=== PATIENT | female | born 1945 | race Caucasian/White ===

== ENCOUNTER 2017-01-14 09:15 | Emergency (ER) | payer OTHER ==
[2017-01-14 09:21] VITALS: BP 119/60; BMI 25.8
--- NOTE | 2017-01-14 09:35 | DR.GENAD ---
HPI - PCP Primary Care Physician: august - Complaint/Symptoms Chief Complaint Doctors Comments: Patient presents with a history of episodes of syncope and collapse for a few years. She had a MRI w/w/o contrast on which demonstranted stable left frontal and left posterior parietal subcortical white matter encephalopathy change from prevous infarct. on 06.19. had a sleep study: Impression: Be cautioned regarding drowsy driving. be placed on weight reductin diet, if indicated avoud narcotics and sedatives if possible. Jordy admits to recurrent periods of syncope with recovery in short period of time. When examinating patient she was alert in NAD. She admits to theses episodes for several years. She becomes alert after a short period. Chief Complaint:: family stated she has been feeling bad for awhile and this this morning and she had a low blood pressure at 60 systolic - Source History Provided: Patient - Mode of Arrival Mode of Arrival: Ambulatory - Timing Onset of Chief Complaint: 01/14/17 PMH - PMH Past Medical History: Yes Past Medical History: Diabetes, Hypertension Past Surgical History: Yes Surgical History: Abdominal Surgery, Ortho Surgery - Family History History of Family Medical Conditions: No - Social History Does patient currently use any type of tobacco product: No Have you used tobacco products in the last 12 months: No Type of Tobacco Use: None Does any household member use tobacco: No Alcohol Use: None Do you use any recreational Drugs:: No Lives With: Family Lives Where: Home - infectious screening In the last 2 months have you had wt loss of >10#?: NO Have you had fever, night sweats or hemotysis?: No Have you traveled outside the country in the last 6 months?: No Isolation: Standard ROS - Review of Systems Eyes: No Symptoms Reported ENTM: No Symptoms Reported Respiratoy: No Symptoms Reported Cardiovascular: No Symptoms Reported Gastrointestinal/Abdominal: No Symptoms Reported Genitourinary: No Symptoms Reported Neurological: No Symptoms Reported Musculoskeletal: No Symptoms Reported Integumentary: No Symptoms Reported Hematologic/Lymphatic: No Symptoms Reported Endocrine: No Symptoms Reported Psychiatric: No Symptoms Reported All Other Systems: Reviewed and Negative PE - Vital Signs Vitals: Temperature 97.3 F Pulse Rate 73 Respiratory Rate 16 Blood Pressure 119/60 O2 Sat by Pulse Oximetry 99 - General General Appearance: Alert, In No Apparent Distress - Head Head Exam: Normal Inspection, Atraumatic - Eyes Eye exam: Normal Appearance, EOMI - ENT ENT Exam: Normal Exam External Ear Exam: Normal External Inspection TM/Canal Exam: Bilateral Normal Nose Exam: Normal Nose Exam Mouth Exam: Normal Inspection Throat Exam: Normal Inspection - Neck Neck Exam: Normal Inspection, Full ROM - Chest Chest Inspection: Normal Inspection, Symmetric Chest Wall Rise - Respiratory Respiratory Exam: Bilateral Clear to Auscultation - Cardiovascular Cardiovascular Exam: Regular Rate, Normal Rhythm - Extremities Extremities Exam: Normal Inspection - Back Back Exam: Normal Inspection - Neurologic Neurological Exam: Alert, Oriented X3, CN II-XII Intact - Skin Skin Exam: Warm, Dry, Intact Course - Reevaluation 1st: Improved ROR - Labs Reviewed Result Diagrams: 01/14/17 09:56 01/14/17 09:56 Laboratory: WBC 6.4 X10^3/uL (3.6-10.0) 01/14/17 09:56 RBC 4.09 X10^6/uL (3.5-5.4) 01/14/17 09:56 Hgb 10.7 g/dL (12.0-16.0) L 01/14/17 09:56 Hct 32.1 % (36.0-47.0) L 01/14/17 09:56 MCV 78.5 fL (80.0-100.0) L 01/14/17 09:56 MCH 26.1 pg (27.0-34.0) L 01/14/17 09:56 MCHC 33.2 g/dL (33.0-35.0) 01/14/17 09:56 RDW 15.5 % (11.6-16.5) 01/14/17 09:56 Plt Count 261 X10^3/uL (150.0-450.0) 01/14/17 09:56 MPV 7.1 fL (7.4-11.0) L 01/14/17 09:56 Neut % 60.8 % (42.0-75.0) 01/14/17 09:56 Lymph % 27.9 % (21.0-51.0) 01/14/17 09:56 [place] % 7.4 % (0.0-13.0) 01/14/17 09:56 Eos % 3.3 % (0.9-2.9) H 01/14/17 09:56 Baso % 0.6 % (0.2-1.0) 01/14/17 09:56 Neut # 3.9 x10^3/uL (2.2-4.8) 01/14/17 09:56 Lymph # 1.8 X10^3/uL (1.3-2.9) 01/14/17 09:56 [place] # 0.5 x10^3/uL (0.3-0.8) 01/14/17 09:56 Eos # 0.2 x10^3/uL (0.0-0.2) 01/14/17 09:56 Baso # 0.0 X10^3/uL (0.0-0.1) 01/14/17 09:56 Absolute Nucleated RBC 0.0 /100WBC 01/14/17 09:56 INR Target Range - 01/14/17 09:56 INR 1.03 (0.8-1.3) 01/14/17 09:56 Sodium 138 mmol/L (136-145) 01/14/17 09:56 Corrected Sodium 139 mmol/L (136-145) 01/14/17 09:56 Potassium 4.0 mmol/L (3.5-5.1) 01/14/17 09:56 Chloride 102 mmol/L (98-107) 01/14/17 09:56 Carbon Dioxide 30.2 mmol/L (21-32) 01/14/17 09:56 BUN 14 mg/dL (7-18) 01/14/17 09:56 Creatinine 1.25 mg/dL (0.55-1.02) H 01/14/17 09:56 Est GFR (MDRD) Af Amer 54 (>60) L 01/14/17 09:56 Est GFR (MDRD) Non-Af 45 (>60) L 01/14/17 09:56 Glucose 136 mg/dL (65-99) H 01/14/17 09:56 Calcium 9.0 mg/dL (8.5-10.1) 01/14/17 09:56 Corrected Calcium TNP 01/14/17 09:56 Phosphorus 3.6 mg/dL (2.6-4.7) 01/14/17 09:56 Magnesium 1.5 mg/dL (1.7-2.9) L 01/14/17 09:56 Total Bilirubin 0.30 mg/dL (0.2-1.0) 01/14/17 09:56 AST 16 Units/L (15-37) 01/14/17 09:56 ALT 27 Units/L (12-78) 01/14/17 09:56 Alkaline Phosphatase 29 Units/L (46-116) L 01/14/17 09:56 Creatine Kinase 84 Units/L (26-192) 01/14/17 09:56 CK-MB (CK-2) < 1.0 ng/mL (0-4.0) 01/14/17 09:56 CK/CKMB % Calc 1.2 % (<4) 01/14/17 09:56 Troponin I < 0.02 ng/mL (0-1.5) 01/14/17 09:56 Total Protein 7.1 g/dL (6.4-8.2) 01/14/17 09:56 Albumin 3.8 g/dL (3.4-5.0) 01/14/17 09:56 Globulin 3.3 g/dL (2.5-4.5) 01/14/17 09:56 Albumin/Globulin Ratio 1.2 Ratio (1.1-2.1) 01/14/17 09:56 - Other Results Comments: Reviewed previous reports from [facility] dated 07/19/16: MRI of Brain with and without contrast., Sleep study from [facility]. - Diagnosis Discharge Problem: TIA (transient ischemic attack) Qualifiers: Transient cerebral ischemia type: unspecified Qualified Code(s): G45.9 - Transient cerebral ischemic attack, unspecified - Discharge Plan Condition: Stable - Follow ups/Referrals Follow ups/Referrals: Leon Silvestre [Primary Care Provider] - 3 days - Instructions
[2017-01-14 10:18] LABS: BASOPHILS % (AUTO) 0.6 % (0.2-1.0); EOSINOPHILS # (AUTO) 0.2 x10^3/uL (0.0-0.2); EOSINOPHILS % (AUTO) 3.3 % (0.9-2.9); HEMATOCRIT 32.1 % (36.0-47.0); HEMOGLOBIN 10.7 g/dL (12.0-16.0); LYMPHOCYTES # (AUTO) 1.8 X10^3/uL (1.3-2.9); LYMPHOCYTES % (AUTO) 27.9 % (21.0-51.0); MEAN CORPUSCULAR HEMOGLOBIN 26.1 pg (27.0-34.0); MEAN CORPUSCULAR HGB CONC 33.2 g/dL (33.0-35.0); MEAN CORPUSCULAR VOLUME 78.5 fL (80.0-100.0); MEAN PLATELET VOLUME 7.1 fL (7.4-11.0); MONOCYTES # (AUTO) 0.5 x10^3/uL (0.3-0.8); MONOCYTES % (AUTO) 7.4 % (0.0-13.0); NEUTROPHILS # (AUTO) 3.9 x10^3/uL (2.2-4.8); NEUTROPHILS % (AUTO) 60.8 % (42.0-75.0); PLATELET COUNT 261 X10^3/uL (150.0-450.0); RED BLOOD COUNT 4.09 X10^6/uL (3.5-5.4); RED CELL DISTRIBUTION WIDTH 15.5 % (11.6-16.5); WHITE BLOOD COUNT 6.4 X10^3/uL (3.6-10.0)
--- NOTE | 2017-01-14 10:22 | CT ---
HISTORY: Altered mental status Study: CT head without contrast Comparison: None Findings: The ventricles are normal in size shape and position. There is decreased attenuation in the perivent ricular white matter suggestive of small vessel vascular disease. There is an old left frontal infar ct present. There is no evidence for recent CVA, hemorrhage, mass lesion, or extra-axial fluid colle ction. Those sinuses visualized were clear. The calvarium is intact. 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
[2017-01-14 10:32] LABS: ALANINE AMINOTRANSFERASE 27 Units/L (12-78); ALBUMIN 3.8 g/dL (3.4-5.0); ALKALINE PHOSPHATASE 29 Units/L (46-116); ASPARTATE AMINO TRANSFERASE 16 Units/L (15-37); BLOOD UREA NITROGEN 14 mg/dL (7-18); CARBON DIOXIDE 30.2 mmol/L (21-32); CHLORIDE 102 mmol/L (98-107); COR NA(FOR HYPERGLY) 139 mmol/L (136-145); CREATININE 1.25 mg/dL (0.55-1.02); GLUCOSE 136 mg/dL (65-99); MAGNESIUM 1.5 mg/dL (1.7-2.9); PHOSPHORUS 3.6 mg/dL (2.6-4.7); SODIUM 138 mmol/L (136-145); TOTAL PROTEIN 7.1 g/dL (6.4-8.2); eGFR BLACK RACES 54 (>60); eGFR NON BLACK RACES 45 (>60)
[2017-01-14] MEDS ORDERED: TORADOL 30 MG VIAL IVP ONE (10:51)
[2017-01-14] MEDS ORDERED: ZOFRAN INJ 4 MG VIAL IVP ONE (10:51)
[2017-01-14] MEDS ORDERED: ZOFRAN INJ 4 MG VIAL IM ONE (11:05)
[2017-01-14] MEDS ORDERED: TORADOL 60 MG VIAL IM ONE (11:05)
[2017-01-14] MEDS ORDERED: TORADOL 60 MG VIAL ONE (11:08)
[2017-01-14] MEDS ORDERED: ZOFRAN INJ 4 MG VIAL ONE (11:08)
[2017-01-14 11:14] LABS: CKMB % 1.2 % (<4); CREATINE KINASE 84 Units/L (26-192); CREATINE KINASE MB < 1.0 ng/mL (0-4.0); TROPONIN I < 0.02 ng/mL (0-1.5)
== END 2017-01-14 12:33 | disposition home or self-care (01) ==
LOC: ER 09:15
DX: G45.8 Other transient cerebral ischemic attacks and related syndromes (principal); R55 Syncope and collapse
CPT/HCPCS: 36415; 70450; 80053; 82550; 82553; 83735; 84100; 84484; 85025; 85610; 93005; 93010; 96372; 99283; J1885; J2405

== ENCOUNTER 2018-08-01 09:52 | Observation (INO) ==
[2018-08-01 11:35] LABS: BASOPHILS # (AUTO) 0.2 X10^3/uL (0.0-0.1); BASOPHILS % (AUTO) 2.1 % (0.2-1.0); EOSINOPHILS # (AUTO) 0.1 x10^3/uL (0.0-0.2); EOSINOPHILS % (AUTO) 1.2 % (0.9-2.9); HEMATOCRIT 33.1 % (36.0-47.0); HEMOGLOBIN 10.9 g/dL (12.0-16.0); LYMPHOCYTES # (AUTO) 1.5 X10^3/uL (1.3-2.9); LYMPHOCYTES % (AUTO) 19.6 % (21.0-51.0); MEAN CORPUSCULAR HEMOGLOBIN 24.7 pg (27.0-34.0); MEAN PLATELET VOLUME 7.3 fL (7.4-11.0); MONOCYTES # (AUTO) 0.5 x10^3/uL (0.3-0.8); MONOCYTES % (AUTO) 6.7 % (0.0-13.0); NEUTROPHILS # (AUTO) 5.3 x10^3/uL (2.2-4.8); NEUTROPHILS % (AUTO) 70.4 % (42.0-75.0); PLATELET COUNT 411 X10^3/uL (150.0-450.0); RED BLOOD COUNT 4.42 X10^6/uL (3.5-5.4); RED CELL DISTRIBUTION WIDTH 16.4 % (11.6-16.5); WHITE BLOOD COUNT 7.6 X10^3/uL (3.6-10.0)
[2018-08-01 11:42] LABS: ALANINE AMINOTRANSFERASE 32 Units/L (12-78); ALBUMIN 3.8 g/dL (3.4-5.0); ALKALINE PHOSPHATASE 63 Units/L (46-116); AMYLASE 52 Units/L (25-115); ASPARTATE AMINO TRANSFERASE 19 Units/L (15-37); BLOOD UREA NITROGEN 15 mg/dL (7-18); CALCIUM 9.2 mg/dL (8.5-10.1); CARBON DIOXIDE 29.6 mmol/L (21-32); CHLORIDE 92 mmol/L (98-107); COR NA(FOR HYPERGLY) 131 mmol/L (136-145); CREATININE 0.94 mg/dL (0.55-1.02); LIPASE 135 Units/L (73-393); SODIUM 129 mmol/L (136-145); TOTAL PROTEIN 7.5 g/dL (6.4-8.2); eGFR NON BLACK RACES > 60 (>60)
[2018-08-01] MEDS: PROTONIX INJ 40 MG VIAL IVP SCH ×2 (11:47→20:11)
[2018-08-01] MEDS: NS 1000 ML 1,000 ML IV SCH ×2 (11:47→19:35)
[2018-08-01] MEDS: ZOFRAN INJ 4 MG VIAL IVP PRN ×2 (11:48→19:23)
[2018-08-01 11:50] LABS: BAND NEUTROPHILS % 3 % (0-10)
[2018-08-01 11:51] LABS: HYPOCHROMASIA SLIGHT; MICROCYTOSIS SLIGHT; PLATELET MORPHOLOGY COMMENT NORMAL (NORMAL)
[2018-08-01] MEDS ORDERED: STERILE WATER IRRIGATION IR ONE (12:09)
[2018-08-01 13:07] VITALS: BMI 25.7
[2018-08-01] MEDS ORDERED: FLUVIRIN IM ONE (13:07)
[2018-08-01] MEDS: PEPCID 20 MG IV PREMIX* 20 MG/50 ML BAG IV SCH ×2 (14:05→20:11)
[2018-08-01] MEDS ORDERED: TYLENOL 325 MG TAB PO PRN (18:04)
[2018-08-01] MEDS ORDERED: POTASSIUM CHL 40 MEQ/NS 0.45% 500 ML IV PRN (19:01)
[2018-08-01] MEDS ORDERED: POTASSIUM CHL 60 MEQ/NS 0.45% 500 ML IV PRN (19:01)
[2018-08-01] MEDS ORDERED: POTASSIUM CHLORIDE LIQ 20 MEQ UDC PO PRN (19:01)
[2018-08-01] MEDS ORDERED: K-RIDER 10 MEQ/NS 100 ML 10 MEQ/100 ML BAG IV PRN (19:01)
[2018-08-01] MEDS ORDERED: KLOR-CON PO PRN (19:01)
[2018-08-01] MEDS ORDERED: MICRO K EXTEN CAP 10 MEQ PO PRN (19:01)
[2018-08-01 20:28] LABS: BILIRUBIN,URINE NEGATIVE (NEGATIVE); BLOOD/HEMOGLOBIN,URINE 1+ (NEGATIVE); GLUCOSE, URINE 2+ (NEGATIVE); KETONES,URINE NEGATIVE (NEGATIVE); LEUKOCYTE ESTERASE ,URINE 3+ (NEGATIVE); NITRITES,URINE NEGATIVE (NEGATIVE); PROTEIN,URINE 1+ (NEGATIVE); UROBILINOGEN,URINE NORMAL (NORMAL)
[2018-08-01 20:29] LABS: APPEARANCE,URINE HAZY (CLEAR); COLOR,URINE YELLOW (YELLOW)
--- NOTE | 2018-08-01 20:33 | DR.UPDATE ---
H&P Update History and Physical Update: History and Physical reviewed and patient examined. Changes noted: Yes with the following: WAS SEEN IN THE OFFICE YESTERDAY FOR INTRACTABLE NAUSEA AND VOMITING. SHE DENIES IMPROVEMENT SINCE YESTERDAY. SHE WAS ADMITTED TO THE HOSPITAL FOR FURTHER EVALUATION AND TREATMENT OF DEHYDRATION WITH INTRACTABLE NAUSEA AND VOMITING. SHE HAS BEEN SEEN AND EXAMINED WITH NO OTHER CHANGES NOTED TO H&P.
[2018-08-01 20:37] LABS: RBC,URINE 0-2 /HPF (NONE SEEN)
[2018-08-01 20:38] LABS: BACTERIA,URINE 1+ /HPF (NEGATIVE); MUCUS,URINE FEW /HPF (NEGATIVE); SQUAMOUS EPITHELIAL CELL,UR FEW /HPF (NEGATIVE)
[2018-08-01] MEDS: ROCEPHIN VIAL 1 GRAM IVP SCH (21:18)
[2018-08-02] MEDS: NS 1000 ML 1,000 ML IV SCH ×3 (04:03→19:45)
[2018-08-02] MEDS: ZOFRAN INJ 4 MG VIAL IVP PRN ×2 (05:56→10:53)
[2018-08-02 06:39] LABS: BASOPHILS % (AUTO) 0.6 % (0.2-1.0); EOSINOPHILS # (AUTO) 0.3 x10^3/uL (0.0-0.2); EOSINOPHILS % (AUTO) 4.9 % (0.9-2.9); HEMATOCRIT 29.8 % (36.0-47.0); HEMOGLOBIN 9.8 g/dL (12.0-16.0); LYMPHOCYTES # (AUTO) 1.9 X10^3/uL (1.3-2.9); LYMPHOCYTES % (AUTO) 31.3 % (21.0-51.0); MEAN CORPUSCULAR HEMOGLOBIN 24.8 pg (27.0-34.0); MEAN CORPUSCULAR VOLUME 75.4 fL (80.0-100.0); MEAN PLATELET VOLUME 7.4 fL (7.4-11.0); MONOCYTES # (AUTO) 0.5 x10^3/uL (0.3-0.8); MONOCYTES % (AUTO) 7.7 % (0.0-13.0); NEUTROPHILS # (AUTO) 3.3 x10^3/uL (2.2-4.8); NEUTROPHILS % (AUTO) 55.5 % (42.0-75.0); PLATELET COUNT 362 X10^3/uL (150.0-450.0); RED BLOOD COUNT 3.96 X10^6/uL (3.5-5.4); RED CELL DISTRIBUTION WIDTH 16.7 % (11.6-16.5); WHITE BLOOD COUNT 5.9 X10^3/uL (3.6-10.0)
[2018-08-02 06:58] LABS: ALANINE AMINOTRANSFERASE 30 Units/L (12-78); ALBUMIN 3.5 g/dL (3.4-5.0); ALKALINE PHOSPHATASE 54 Units/L (46-116); ASPARTATE AMINO TRANSFERASE 24 Units/L (15-37); BLOOD UREA NITROGEN 12 mg/dL (7-18); CALCIUM 9.1 mg/dL (8.5-10.1); CARBON DIOXIDE 26.6 mmol/L (21-32); CHLORIDE 99 mmol/L (98-107); COR NA(FOR HYPERGLY) 139 mmol/L (136-145); CREATININE 1.01 mg/dL (0.55-1.02); MAGNESIUM 1.1 mg/dL (1.7-2.9); SODIUM 137 mmol/L (136-145); TOTAL PROTEIN 6.9 g/dL (6.4-8.2); eGFR NON BLACK RACES 57 (>60)
[2018-08-02 07:04] LABS: HYPOCHROMASIA SLIGHT; MICROCYTOSIS SLIGHT; PLATELET MORPHOLOGY COMMENT NORMAL (NORMAL)
[2018-08-02] MEDS: MAGNESIUM SULFATE 1 GRAM/100 mL PREMIX 1 GM/100 ML BAG IV PRN ×6 (08:27→17:21)
[2018-08-02] MEDS: PROTONIX INJ 40 MG VIAL IVP SCH (08:28)
[2018-08-02] MEDS: ROCEPHIN VIAL 1 GRAM IVP SCH (08:28)
[2018-08-02] MEDS: PEPCID 20 MG IV PREMIX* 20 MG/50 ML BAG IV SCH ×2 (08:29→20:41)
--- NOTE | 2018-08-02 12:21 | DR.H&P ---
Addendum entered and electronically signed by RENU DSEAI 08/02/18 12:24: PROGRESS NOTE 08/02/2018 Original Note: H&P - History & Physical for Day of: H&P Date: 08/01/18 - Chief Complaint Chief Complaint: N/V/D, ABDOMINAL PAIN, WEAKNESS - History of Present Illness History of Present Illness: 72 [address] ALATORRE OFFICE WITH CO NVD AND FOOD INTOLERANCE WITH INCREASED WEAKNESS AND DEHYDRATION. PT STATES SHE HAS HAD FOOD INTOLERANCE, WAVES OF NAUSEA AND INCREASED ABDOMINAL DISTENTION WITH GAS BLOATING AND BELCHING. DAUGHTER REPORTS INCREASED WEAKNESS AND FALLS. PT HAS PMH OF CAD, HTN, CVD, OA, DEMENTIA. PT ADMITTED FOR TREATMENT OF ACUTE ILLNESS. - Past Medical History Past Medical History: Anxiety, Arthritis, Coronary Artery Disease, Diabetes, Hypertension - Past Surgical History Surgical History: Hysterectomy, Ortho Surgery - Social History Does patient currently use any type of tobacco product: No Have you used tobacco products in the last 12 months: No Type of Tobacco Use: None Does any household member use tobacco: No Alcohol Use: None Drug Use: None - Medications Home Medications: Sulfa (Sulfonamide Antibiotics) [SULFA] Allergy (Verified 07/24/18 02:33) CONTINUE taking the following medications metformin [Glucophage] 850 mg PO BID 08/01/18 [History] omeprazole magnesium [Prilosec] 20 mg PO QDAY 08/01/18 [History] - Review of Systems Constitutional: Weakness Eyes: No Symptoms Reported ENT: No Symptoms Reported Respiratory: No Symptoms Reported Gastrointestinal: Nausea, Vomiting, Abdominal Pain, Diarrhea Genitourinary: No Symptoms Reported Musculoskeletal: No Symptoms Reported Skin: No Symptoms Reported Neurological: No Symptoms Reported - Physical Exam Vital Signs: Temperature 98.1 F Pulse Rate [Left Brachial] 94 Respiratory Rate 18 Blood Pressure [Left Arm] 173/75 Blood Pressure 138/93 O2 Sat by Pulse Oximetry 100 Oriented: Normal Eyes: Normal Ear: Normal Nose: Normal Throat: Dry Respiratory: RLL Diminished, LLL Diminished Cardiovascular: Normal : Normal Auscultation: Bowel Sounds: Normal Palpation: Normal Tenderness: Diffuse, RUQ, LUQ Skin: Normal Psychiatric: Normal Mood Description: Calm Speech Pattern: Clear, Appropriate - Assessment/Plan (1) Nausea, vomiting and diarrhea Status: Acute Plan: CT ABD PELVIS, REPEAT AM LABS. IV FLUIDS AT 50CCHR. PAIN AND NAUSEA CONTROL (2) Abdominal pain Status: Acute (3) CAD (coronary artery disease) Status: Acute (4) HTN (hypertension) Status: Acute (5) CVD (cerebrovascular disease) Status: Acute - Allergies Allergies/Adverse Reactions: Allergies Allergy/AdvReac Type Severity Reaction Status Date / Time Sulfa (Sulfonamide Allergy Verified 07/24/18 02:33 Antibiotics) [SULFA]
[2018-08-02] MEDS ORDERED: NS 500 ML IV 500 ML IV ONE (14:08)
[2018-08-02] MEDS ORDERED: NS 100 ML IV + SPIKE MINIBAG* 100 ML IV ONE (14:21)
--- NOTE | 2018-08-02 15:05 | CT ---
HISTORY: Nausea vomiting abdominal pain Study: CT abdomen and pelvis nausea with contrast Comparison: 01/04/2015 Technique: Multiple axial images of the abdomen and pelvis were obtained from the lung bases to the pubic symphysis after the administration of IV contrast. Findings: The included lung bases are clear. There is no evidence of a pleural or pericardial effusion. The heart size is normal. There is generalized hypoattenuation of the liver parenchyma consistent with fatty infiltration with focal sparing along the falciform ligament and at the level of the gallbladder fossa. There are no radiopaque gallstones identified. There is no gallbladder wall thickening observed. No acute abnormalities of the spleen are identified. There are no peripancreatic inflammatory changes. The adrenal glands are symmetric. Incidental note is made of dense atherosclerotic calcifications along the splenic artery distribution. Both kidneys enhance in a timely fashion with no evidence of hydronephrosis, striated nephrogram formation or perinephric stranding. There is mild cortical scarring of both kidneys. The bowel gas pattern is nonobstructive. Oral contrast material extends as far as the rectosigmoid colon at the time of the scan. Generalized left-sided colonic diverticulosis is observed with no active inflammatory stranding identified. The aorta maintains a normal caliber, exhibiting moderate atherosclerotic disease. There are no pathologically enlarged retro peritoneal, central mesenteric, or portal caval lymph nodes. There is no evidence of free air or free fluid. Note that the uterus is surgically absent. The bladder is incompletely distended at the time of the scan but otherwise unremarkable for acute pathology. There is no pelvic sidewall or inguinal lymphadenopathy. No free fluid is demonstrated. Review of bone windows demonstrates no aggressive lytic or blastic bony lesions or acute osseous abnormalities. Small foci of AVN are seen within the bilateral femoral heads without subchondral collapse. Multiple injection granuloma are seen along the bilateral flanks. IMPRESSION: No acute intra-abdominal or pelvic abnormality Nonobstructive bowel gas pattern Diverticulosis of the left colon with no findings of acute diverticulitis. Fatty infiltration of the liver parenchyma Other chronic postsurgical and degenerative findings as discussed above. Reported By:
[2018-08-02] MEDS: K-DUR TAB 20 MEQ PO PRN (17:32)
[2018-08-02] MEDS: NORVASC TAB 5 MG PO SCH (20:41)
[2018-08-02] MEDS: GLUCOPHAGE PO SCH (20:42)
[2018-08-02] MEDS ORDERED: RESTORIL CAP 15 MG PO PRN (20:50)
[2018-08-02] MEDS ORDERED: COZAAR PO SCH (21:00)
[2018-08-02] MEDS ORDERED: CRESTOR TAB 10 MG PO SCH (21:00)
[2018-08-03] MEDS: NS 1000 ML 1,000 ML IV SCH (03:55)
[2018-08-03] MEDS ORDERED: MAALOX or MYLANTA PO PRN (03:57)
[2018-08-03 06:38] LABS: BASOPHILS % (AUTO) 0.7 % (0.2-1.0); EOSINOPHILS # (AUTO) 0.2 x10^3/uL (0.0-0.2); EOSINOPHILS % (AUTO) 2.7 % (0.9-2.9); HEMATOCRIT 28.9 % (36.0-47.0); HEMOGLOBIN 9.5 g/dL (12.0-16.0); LYMPHOCYTES # (AUTO) 1.7 X10^3/uL (1.3-2.9); LYMPHOCYTES % (AUTO) 26.6 % (21.0-51.0); MEAN CORPUSCULAR HGB CONC 32.9 g/dL (33.0-35.0); MEAN PLATELET VOLUME 7.7 fL (7.4-11.0); MONOCYTES # (AUTO) 0.4 x10^3/uL (0.3-0.8); MONOCYTES % (AUTO) 7.1 % (0.0-13.0); NEUTROPHILS # (AUTO) 3.9 x10^3/uL (2.2-4.8); NEUTROPHILS % (AUTO) 62.9 % (42.0-75.0); PLATELET COUNT 339 X10^3/uL (150.0-450.0); RED CELL DISTRIBUTION WIDTH 16.6 % (11.6-16.5); WHITE BLOOD COUNT 6.3 X10^3/uL (3.6-10.0)
[2018-08-03 06:47] LABS: ALANINE AMINOTRANSFERASE 34 Units/L (12-78); ALBUMIN 3.5 g/dL (3.4-5.0); ALKALINE PHOSPHATASE 54 Units/L (46-116); ASPARTATE AMINO TRANSFERASE 24 Units/L (15-37); BLOOD UREA NITROGEN 4 mg/dL (7-18); CALCIUM 8.7 mg/dL (8.5-10.1); CARBON DIOXIDE 27.4 mmol/L (21-32); CHLORIDE 102 mmol/L (98-107); COR NA(FOR HYPERGLY) 139 mmol/L (136-145); CREATININE 0.75 mg/dL (0.55-1.02); SODIUM 138 mmol/L (136-145); TOTAL PROTEIN 6.9 g/dL (6.4-8.2); eGFR NON BLACK RACES > 60 (>60)
[2018-08-03 07:39] LABS: HYPOCHROMASIA SLIGHT; PLATELET MORPHOLOGY COMMENT NORMAL (NORMAL)
[2018-08-03] MEDS ORDERED: TOPROL XL PO ONE ×2 (08:22→08:42)
[2018-08-03] MEDS: ROCEPHIN VIAL 1 GRAM IVP SCH (08:35)
[2018-08-03] MEDS: PEPCID 20 MG IV PREMIX* 20 MG/50 ML BAG IV SCH (08:35)
[2018-08-03] MEDS: K-DUR TAB 20 MEQ PO PRN (08:35)
[2018-08-03] MEDS: GLUCOPHAGE PO SCH ×2 (08:36→10:16)
[2018-08-03] MEDS: NORVASC TAB 5 MG PO SCH (08:38)
[2018-08-03] MEDS ORDERED: PLAVIX PO SCH (09:00)
[2018-08-03] MEDS ORDERED: PriLOSEC PO SCH (09:00)
[2018-08-03] MEDS ORDERED: METOPROLOL SU HYDROCHLOROTHIAZ PO SCH (09:00)
[2018-08-03] MEDS ORDERED: TOPROL XL PO SCH (09:00)
[2018-08-03] MEDS ORDERED: HYDROCHLOROTHIAZIDE 12.5 MG CAP PO SCH (09:00)
[2018-08-03] MEDS ORDERED: CYMBALTA PO SCH (09:00)
[2018-08-03] MEDS ORDERED: ASPIRIN EC 81 MG PO SCH (09:00)
[2018-08-03] MEDS ORDERED: COENZYME Q10 75 MG PO SCH (09:00)
[2018-08-03] MEDS ORDERED: TRICOR TAB 48 MG PO SCH (09:00)
[2018-08-03] MEDS: MAGNESIUM SULFATE 1 GRAM/100 mL PREMIX 1 GM/100 ML BAG IV PRN (11:17)
[2018-08-03 12:43] VITALS: BP 150/73
== END 2018-08-03 14:20 | disposition home or self-care (01) ==
LOC: MED/SURG
PROVIDERS: ADMIT Internal Medicine; ATTEND Internal Medicine
DX: R29.6 Repeated falls; R11.2 Nausea with vomiting, unspecified; K76.0 Fatty (change of) liver, not elsewhere classified; K90.49 Malabsorption due to intolerance, not elsewhere classified; E11.65 Type 2 diabetes mellitus with hyperglycemia; I10 Essential (primary) hypertension; M13.0 Polyarthritis, unspecified; E78.2 Mixed hyperlipidemia; R53.1 Weakness; I25.810 Atherosclerosis of coronary artery bypass graft(s) without angina pectoris; R19.7 Diarrhea, unspecified; Z23 Encounter for immunization; Z79.899 Other long term (current) drug therapy; E86.0 Dehydration; K57.30 Diverticulosis of large intestine without perforation or abscess without bleeding
CPT/HCPCS: 36415; 74177; 80053; 81001; 82150; 83690; 83735; 84132; 85025; 87086; 90686; 94760; A4216; A4217; A4222; C9113; S0028; G0378; J0696; J2405; J3475; J3490; J7030; J7040; J7050

== ENCOUNTER 2024-02-29 15:44 | Inpatient (IN) ==
[2024-02-29 16:16] LABS: BASOPHILS # (AUTO) 0.1 X10^3/uL (0.0-0.1); BASOPHILS % (AUTO) 0.5 % (0.2-1.0); EOSINOPHILS % (AUTO) 0.2 % (0.9-2.9); HEMATOCRIT 38.8 % (36.0-47.0); HEMOGLOBIN 13.6 g/dL (12.0-16.0); LYMPHOCYTES # (AUTO) 1.7 X10^3/uL (1.3-2.9); LYMPHOCYTES % (AUTO) 14.7 % (21.0-51.0); MEAN CORPUSCULAR HEMOGLOBIN 29.8 pg (27.0-34.0); MEAN CORPUSCULAR HGB CONC 35.1 g/dL (33.0-35.0); MEAN PLATELET VOLUME 6.8 fL (7.4-11.0); MONOCYTES % (AUTO) 8.4 % (0.0-13.0); NEUTROPHILS # (AUTO) 8.7 x10^3/uL (2.2-4.8); NEUTROPHILS % (AUTO) 76.2 % (42.0-75.0); PLATELET COUNT 347 X10^3/uL (150.0-450.0); RED BLOOD COUNT 4.57 X10^6/uL (3.5-5.4); RED CELL DISTRIBUTION WIDTH 13.8 % (11.6-16.5); WHITE BLOOD COUNT 11.4 X10^3/uL (3.6-10.0)
--- NOTE | 2024-02-29 16:24 | DR.EXTPAIN ---
HPI Time seen Time Seen by Provider: 02/29/24 16:08 PCP Primary Care Physician: august HPI Comment HPI Comment: According to family patient has not been feelingwell for at least 1 week .Pt had low back pain as well as left hip pain .had been prescribed opioids.Furthermore she was treated with antibiotics and zofran after her urianlysis was noted to be abnormal . Pt has not been eating well with no appetite.Family concerned hence the visit Complaint/Symptoms Chief Complaint Doctor Comments: not feeling well Chief Complaint:: patient family states that she was seen here in the er saturday night due to severe siatic pain states she went home she has been in so much pain since then that she would vomit once or twice and it makes her nauseous to wear she has no appeitite to eat or drink. Patient has been able to ambulate with assistance in her home. seen dr koch on saturday states they started her antibitoics due to a UTI. Patient family states she been laying on the couch all day moaning. Patient denies any pain at the moment but is diaphoretic and had difficulty getting out of vehicle. COVID-19 Coronavirus risk:travel/contact w/high risk person: No Has patient experienced Coronavirus symptoms: No Nurses notes reviewed Nurses Notes Review: Yes Source History Provided: Patient and Family Member Mode of arrival Mode of Arrival: Wheelchair Timing Onset of Chief Complaint: 02/25/24 Context History of: Arthritis Associated signs and symptoms Associated Signs and Symptoms: Weakness and Nausea PMH PMH Past Medical History: Yes Past Medical History: Arthritis, Dyslipidemia, GERD, Hypertension and Kidney Stones Past Medical History Comment: predm, cad,ddd,tia,cvd Past Surgical History: Yes Surgical History: Appendectomy, CABG/Valve Surgery, Hysterectomy and Ortho Surgery Family History History of Family Medical Conditions: Yes Family Medical History: Diabetes Mellitus, Cancer, [place] and Hypertension Social History Does patient currently use any type of tobacco product: No Have you used tobacco products in the last 12 months: No Type of Tobacco Use: None Does any household member use tobacco: No Alcohol Use: None Do you use any recreational Drugs:: No Lives With: Family Lives Where: Home Travel Risk Coronavirus risk:travel/contact w/high risk person: No Has patient experienced Coronavirus symptoms: No Infectious screening In the last 2 months have you had wt loss of >10#?: NO Have you had fever, night sweats or hemotysis?: No Have you traveled outside the country in the last 6 months?: No Isolation: Standard ROS Review of Systems Constitutional: Malaise and Weakness Eyes: No Symptoms Reported ENTM: No Symptoms Reported Respiratoy: No Symptoms Reported Cardiovascular: No Symptoms Reported Gastrointestinal/Abdominal: Nausea and Other (decreased appetite ) Genitourinary: No Symptoms Reported Neurological: Weakness Musculoskeletal: Back Pain, Joint Pain and Hip Integumentary: No Symptoms Reported Hematologic/Lymphatic: No Symptoms Reported Endocrine: Decreased Appetite Psychiatric: No Symptoms Reported PE Vital Signs Vitals: Vital Signs Temperature 97.9 F Pulse Rate 87 Respiratory Rate 18 Blood Pressure 186/84 O2 Sat by Pulse Oximetry 96 General Limitations: No Limitations General Appearance: Alert and Lethargic Head Head Exam: Normal Inspection, Atraumatic and Normocephalic Eyes Eye exam: Normal Appearance and PERRL ENT ENT Exam: Mucous Membranes Dry Neck Neck Exam: Normal Inspection and Full ROM Chest Chest Inspection: Normal Inspection and Symmetric Chest Wall Rise Respiratory Respiratory Exam: Normal Lung Sounds Bilat Respiratory Exam: Bilateral: Clear to Auscultation Cardiovascular Cardiovascular Exam: +S1 and +S2 Abdominal Exam Abdominal Exam: Normal Inspection, Normal Bowel Sounds and Soft Extremities Extremities Exam: Normal Inspection, Full ROM and Other Skin Skin Exam: Normal Color Other Exam Other Exam: alert MDM Differential Diagnosis Differential Diagnosis: Other (not feeling weell.malaise,decreased appetite ,hx of chronic pain ) ROR Labs Reviewed Laboratory Results Reviewed?: Yes 02/29/24 15:50 02/29/24 15:50 Laboratory: WBC 11.4 X10^3/uL (3.6-10.0) H 02/29/24 15:50 RBC 4.57 X10^6/uL (3.5-5.4) 02/29/24 15:50 Hgb 13.6 g/dL (12.0-16.0) 02/29/24 15:50 Hct 38.8 % (36.0-47.0) 02/29/24 15:50 MCV 85.0 fL (80.0-100.0) 02/29/24 15:50 MCH 29.8 pg (27.0-34.0) 02/29/24 15:50 MCHC 35.1 g/dL (33.0-35.0) H 02/29/24 15:50 RDW 13.8 % (11.6-16.5) 02/29/24 15:50 Plt Count 347 X10^3/uL (150.0-450.0) 02/29/24 15:50 MPV 6.8 fL (7.4-11.0) L 02/29/24 15:50 Neut % (Auto) 76.2 % (42.0-75.0) H 02/29/24 15:50 Lymph % (Auto) 14.7 % (21.0-51.0) L 02/29/24 15:50 [place] % (Auto) 8.4 % (0.0-13.0) 02/29/24 15:50 Eos % (Auto) 0.2 % (0.9-2.9) L 02/29/24 15:50 Baso % (Auto) 0.5 % (0.2-1.0) 02/29/24 15:50 Neut # (Auto) 8.7 x10^3/uL (2.2-4.8) H 02/29/24 15:50 Lymph # (Auto) 1.7 X10^3/uL (1.3-2.9) 02/29/24 15:50 [place] # (Auto) 1.0 x10^3/uL (0.3-0.8) H 02/29/24 15:50 Eos # (Auto) 0.0 x10^3/uL (0.0-0.2) 02/29/24 15:50 Baso # (Auto) 0.1 X10^3/uL (0.0-0.1) 02/29/24 15:50 Absolute Nucleated RBC 0.1 /100WBC 02/29/24 15:50 Sodium 118 mmol/L (136-145) L* 02/29/24 15:50 Corrected Sodium 120 mmol/L (136-145) L 02/29/24 15:50 Potassium 4.1 mmol/L (3.5-5.1) 02/29/24 15:50 Chloride 79 mmol/L (98-107) L* 02/29/24 15:50 Carbon Dioxide 26.5 mmol/L (21-32) 02/29/24 15:50 BUN 15 mg/dL (7-18) 02/29/24 15:50 Creatinine 0.96 mg/dL (0.55-1.02) 02/29/24 15:50 Est GFR (MDRD) Af Amer > 60 (>60) 02/29/24 15:50 Est GFR (MDRD) Non-Af 59 (>60) 02/29/24 15:50 Glucose 167 mg/dL (65-99) H 02/29/24 15:50 Calcium 9.1 mg/dL (8.5-10.1) 02/29/24 15:50 Corrected Calcium TNP 02/29/24 15:50 Magnesium 1.0 mg/dL (2.0-2.9) L 02/29/24 15:50 Total Bilirubin 0.50 mg/dL (0.2-1.0) 02/29/24 15:50 AST 25 Units/L (15-37) 02/29/24 15:50 ALT 17 Units/L (12-78) 02/29/24 15:50 Alkaline Phosphatase 57 Units/L (46-116) 02/29/24 15:50 Total Protein 8.1 g/dL (6.4-8.2) 02/29/24 15:50 Albumin 4.1 g/dL (3.4-5.0) 02/29/24 15:50 Globulin 4.0 g/dL (2.5-4.5) 02/29/24 15:50 Albumin/Globulin Ratio 1.0 Ratio (1.1-2.1) L 02/29/24 15:50 Opioid Opioid Risk Tool Age (Brody box if 16-45): No History of Preadolescent Sexual Abuse: No Total: 0 Total Score Risk Category: Low Risk Copyright: Kurt predicting aberrant behaviors Discharge Plan Diagnosis Discharge Problem: Acute hyponatremia, Hypomagnesemia, Decrease in appetite, DM2 (diabetes mellitus, type 2), Malaise Discharge Plan Patient Disposition: ADMITTED INPATIENT Condition: Stable Orders to Discharge Patient Discharge Orders: Transfer (Routine); Ordered 02/29/24 Ordered By: Rob Johnson ADDITIONAL NOTES Additional Notes Additional Notes: Spoke with Codey Jarquin .Agreed to have patient admitted for amangement of hyponatremia and hypomagnesemia
[2024-02-29 16:26] LABS: ALANINE AMINOTRANSFERASE 17 Units/L (12-78); ALBUMIN 4.1 g/dL (3.4-5.0); ALKALINE PHOSPHATASE 57 Units/L (46-116); ASPARTATE AMINO TRANSFERASE 25 Units/L (15-37); BLOOD UREA NITROGEN 15 mg/dL (7-18); CALCIUM 9.1 mg/dL (8.5-10.1); CARBON DIOXIDE 26.5 mmol/L (21-32); COR NA(FOR HYPERGLY) 120 mmol/L (136-145); CREATININE 0.96 mg/dL (0.55-1.02); GLUCOSE 167 mg/dL (65-99); POTASSIUM 4.1 mmol/L (3.5-5.1); TOTAL PROTEIN 8.1 g/dL (6.4-8.2); eGFR NON BLACK RACES 59 (>60)
[2024-02-29 16:30] LABS: CHLORIDE 79 mmol/L (98-107); SODIUM 118 mmol/L (136-145)
[2024-02-29] MEDS: NS 1,000 ML IV 1,000 ML IV ONE (16:32)
[2024-02-29] MEDS: MAGNESIUM SULFATE 1 GRAM/100 mL PREMIX 1 G/100 ML BAG IV ONE ×3 (16:36→20:10)
[2024-02-29] MEDS ORDERED: ZOFRAN INJ 4 MG VIAL IVP PRN (17:32)
[2024-02-29] MEDS: NS 1,000 ML IV 1,000 ML ONE (17:35)
[2024-02-29] MEDS: CONSULT PHARMACY - POTASSIUM & MAGNESIUM XX SCH (17:36)
[2024-02-29 18:23] VITALS: BMI 19.0
[2024-02-29] MEDS: CATAPRES-TTS-1 TD SCH (19:31)
[2024-02-29] MEDS: NORCO 10/325 TAB PO PRN (19:31)
[2024-02-29] MEDS: CATAPRES-TTS-1 TD ONE (19:52)
[2024-02-29] MEDS: NORCO 10/325 TAB ONE (19:52)
[2024-02-29] MEDS: APRESOLINE INJ 20 MG VIAL IVP ONE (19:58)
[2024-02-29] MEDS ORDERED: GLUCOPHAGE ONE (20:03)
[2024-02-29] MEDS: NS 1,000 ML IV 1,000 ML IV SCH (20:10)
[2024-02-29] MEDS: GLUCOPHAGE PO SCH (20:11)
[2024-02-29] MEDS: NORVASC TAB 10 MG PO SCH (20:11)
[2024-02-29] MEDS: DESYREL PO SCH (20:11)
[2024-02-29] MEDS: MAG-OX TAB PO SCH (20:11)
[2024-02-29] MEDS: CRESTOR TAB 10 MG PO SCH (20:12)
[2024-02-29] MEDS: SINGULAIR TAB 10 MG PO SCH (20:12)
--- NOTE | 2024-02-29 20:42 | EKG ---
Test Reason : HYPERTENSION PROTOCOL Blood Pressure : */* mmHG Vent. Rate : 82 BPM Atrial Rate : 82 BPM P-R Int : 118 ms QRS Dur : 98 ms QT Int : 432 ms P-R-T Axes : 41 4 61 degrees QTc Int : 504 ms Normal sinus rhythm Minimal voltage criteria for LVH, may be normal variant ( R in aVL ) Inferior infarct , age undetermined Abnormal ECG When compared with ECG of 14-JUL-2022 22:12, No significant change was found Confirmed by Phuc Silva MD ([id number]) on 03/02/2024 7:48:27 AM Referred By: Confirmed By: Phuc Silva MD
[2024-02-29] MEDS ORDERED: MAGNESIUM SULFATE 1 GRAM/100 mL PREMIX 1 G/100 ML BAG IV SCH (21:00)
[2024-02-29] MEDS ORDERED: PATIENT'S HOME MEDICATION (Metformin 1,000 mg tablet) PO SCH (21:00)
[2024-02-29] MEDS ORDERED: PATIENT'S HOME MEDICATION (Rosuvastatin 20 mg tablet) PO SCH (21:00)
[2024-02-29] MEDS ORDERED: AMLODIPINE BESYLATE 5 MG PO SCH (21:00)
[2024-02-29 22:30] LABS: BLOOD UREA NITROGEN 15 mg/dL (7-18); CALCIUM 8.2 mg/dL (8.5-10.1); CARBON DIOXIDE 27.6 mmol/L (21-32); CHLORIDE 85 mmol/L (98-107); COR NA(FOR HYPERGLY) 123 mmol/L (136-145); CREATININE 0.87 mg/dL (0.55-1.02); GLUCOSE 171 mg/dL (65-99); POTASSIUM 3.1 mmol/L (3.5-5.1); eGFR NON BLACK RACES > 60 (>60)
[2024-02-29 22:34] LABS: SODIUM 121 mmol/L (136-145)
[2024-02-29] MEDS: RESTORIL CAP 15 MG PO PRN (23:45)
[2024-03-01] MEDS: NS 1,000 ML IV 1,000 ML IV SCH (02:00)
[2024-03-01 03:05] LABS: BLOOD UREA NITROGEN 15 mg/dL (7-18); CALCIUM 8.1 mg/dL (8.5-10.1); CARBON DIOXIDE 27.8 mmol/L (21-32); CHLORIDE 89 mmol/L (98-107); COR NA(FOR HYPERGLY) 125 mmol/L (136-145); CREATININE 0.87 mg/dL (0.55-1.02); GLUCOSE 123 mg/dL (65-99); POTASSIUM 3.1 mmol/L (3.5-5.1); eGFR NON BLACK RACES > 60 (>60)
[2024-03-01 03:06] LABS: SODIUM 124 mmol/L (136-145)
[2024-03-01 06:09] LABS: BASOPHILS % (AUTO) 0.4 % (0.2-1.0); EOSINOPHILS # (AUTO) 0.1 x10^3/uL (0.0-0.2); EOSINOPHILS % (AUTO) 0.9 % (0.9-2.9); HEMATOCRIT 30.1 % (36.0-47.0); LYMPHOCYTES # (AUTO) 1.3 X10^3/uL (1.3-2.9); LYMPHOCYTES % (AUTO) 19.8 % (21.0-51.0); MEAN CORPUSCULAR HEMOGLOBIN 30.1 pg (27.0-34.0); MEAN CORPUSCULAR HGB CONC 35.3 g/dL (33.0-35.0); MEAN CORPUSCULAR VOLUME 85.5 fL (80.0-100.0); MEAN PLATELET VOLUME 6.7 fL (7.4-11.0); MONOCYTES # (AUTO) 0.7 x10^3/uL (0.3-0.8); MONOCYTES % (AUTO) 10.9 % (0.0-13.0); NEUTROPHILS # (AUTO) 4.6 x10^3/uL (2.2-4.8); PLATELET COUNT 247 X10^3/uL (150.0-450.0); RED BLOOD COUNT 3.52 X10^6/uL (3.5-5.4); RED CELL DISTRIBUTION WIDTH 13.6 % (11.6-16.5); WHITE BLOOD COUNT 6.7 X10^3/uL (3.6-10.0)
[2024-03-01 06:25] LABS: BLOOD UREA NITROGEN 14 mg/dL (7-18); CALCIUM 8.1 mg/dL (8.5-10.1); CARBON DIOXIDE 28.2 mmol/L (21-32); CHLORIDE 92 mmol/L (98-107); COR NA(FOR HYPERGLY) 128 mmol/L (136-145); CREATININE 0.84 mg/dL (0.55-1.02); GLUCOSE 128 mg/dL (65-99); MAGNESIUM 1.7 mg/dL (2.0-2.9); POTASSIUM 3.3 mmol/L (3.5-5.1); SODIUM 127 mmol/L (136-145); eGFR NON BLACK RACES > 60 (>60)
[2024-03-01 06:49] LABS: HEMOGLOBIN 10.6 g/dL (12.0-16.0)
[2024-03-01] MEDS ORDERED: CONSULT PHARMACY - POTASSIUM & MAGNESIUM XX SCH (07:00)
[2024-03-01] MEDS: MAG-OX TAB PO SCH (08:12)
[2024-03-01] MEDS: PLAVIX PO SCH (08:12)
[2024-03-01] MEDS: CYMBALTA PO SCH (08:12)
[2024-03-01] MEDS: K-DUR TAB 20 MEQ PO SCH (08:13)
[2024-03-01] MEDS: ASPIRIN 81 MG CHEWTAB PO SCH (08:13)
[2024-03-01] MEDS: TOPROL XL PO SCH (08:13)
[2024-03-01] MEDS: GLUCOPHAGE ONE (08:13)
[2024-03-01] MEDS: COZAAR PO SCH (08:13)
[2024-03-01] MEDS: TOPROL XL PO ONE (08:24)
[2024-03-01] MEDS ORDERED: PATIENT'S HOME MEDICATION (Losartan 100 mg tablet) PO SCH (09:00)
[2024-03-01] MEDS ORDERED: ASPIRIN 81 MG PO SCH (09:00)
[2024-03-01] MEDS ORDERED: TOPROL XL PO SCH (09:00)
[2024-03-01] MEDS ORDERED: PLAVIX PO SCH (09:00)
[2024-03-01 10:18] LABS: BLOOD UREA NITROGEN 13 mg/dL (7-18); CARBON DIOXIDE 25.4 mmol/L (21-32); CHLORIDE 94 mmol/L (98-107); COR NA(FOR HYPERGLY) 131 mmol/L (136-145); CREATININE 0.81 mg/dL (0.55-1.02); GLUCOSE 162 mg/dL (65-99); POTASSIUM 3.3 mmol/L (3.5-5.1); SODIUM 130 mmol/L (136-145); eGFR NON BLACK RACES > 60 (>60)
[2024-03-01] MEDS: MORPHINE SULFATE INJ 2 MG INJ IVP ONE (13:53)
[2024-03-01] MEDS ORDERED: BUTT CREAM (COMPOUND) TOP PRN (14:12)
[2024-03-01 14:43] LABS: BLOOD UREA NITROGEN 13 mg/dL (7-18); CALCIUM 8.3 mg/dL (8.5-10.1); CARBON DIOXIDE 26.8 mmol/L (21-32); CHLORIDE 96 mmol/L (98-107); COR NA(FOR HYPERGLY) 134 mmol/L (136-145); GLUCOSE 181 mg/dL (65-99); SODIUM 132 mmol/L (136-145); eGFR NON BLACK RACES > 60 (>60)
[2024-03-01] MEDS ORDERED: MAALOX or MYLANTA PO PRN (18:09)
[2024-03-01] MEDS ORDERED: GLUCOPHAGE ONE (21:39)
[2024-03-01] MEDS: NORMODYNE INJ 20 MG VIAL IV PRN (23:34)
[2024-03-02 05:41] LABS: BASOPHILS % (AUTO) 0.3 % (0.2-1.0); EOSINOPHILS # (AUTO) 0.1 x10^3/uL (0.0-0.2); EOSINOPHILS % (AUTO) 1.2 % (0.9-2.9); HEMOGLOBIN 11.5 g/dL (12.0-16.0); LYMPHOCYTES # (AUTO) 1.4 X10^3/uL (1.3-2.9); LYMPHOCYTES % (AUTO) 12.1 % (21.0-51.0); MEAN CORPUSCULAR HEMOGLOBIN 30.1 pg (27.0-34.0); MEAN CORPUSCULAR HGB CONC 34.9 g/dL (33.0-35.0); MEAN CORPUSCULAR VOLUME 86.2 fL (80.0-100.0); MEAN PLATELET VOLUME 7.2 fL (7.4-11.0); MONOCYTES % (AUTO) 8.4 % (0.0-13.0); PLATELET COUNT 265 X10^3/uL (150.0-450.0); RED BLOOD COUNT 3.83 X10^6/uL (3.5-5.4); RED CELL DISTRIBUTION WIDTH 14.4 % (11.6-16.5); WHITE BLOOD COUNT 11.6 X10^3/uL (3.6-10.0)
[2024-03-02 06:00] LABS: ALANINE AMINOTRANSFERASE 19 Units/L (12-78); ALBUMIN 3.7 g/dL (3.4-5.0); ALKALINE PHOSPHATASE 52 Units/L (46-116); ASPARTATE AMINO TRANSFERASE 19 Units/L (15-37); BLOOD UREA NITROGEN 8 mg/dL (7-18); CALCIUM 8.6 mg/dL (8.5-10.1); CARBON DIOXIDE 25.5 mmol/L (21-32); CHLORIDE 98 mmol/L (98-107); COR NA(FOR HYPERGLY) 137 mmol/L (136-145); CREATININE 0.61 mg/dL (0.55-1.02); GLUCOSE 123 mg/dL (65-99); POTASSIUM 3.4 mmol/L (3.5-5.1); SODIUM 136 mmol/L (136-145); TOTAL PROTEIN 7.1 g/dL (6.4-8.2); eGFR NON BLACK RACES > 60 (>60)
[2024-03-02 08:23] LABS: BILIRUBIN,URINE NEGATIVE (NEGATIVE); BLOOD/HEMOGLOBIN,URINE NEGATIVE (NEGATIVE); GLUCOSE, URINE NEGATIVE (NEGATIVE); KETONES,URINE NEGATIVE (NEGATIVE); LEUKOCYTE ESTERASE ,URINE NEGATIVE (NEGATIVE); NITRITES,URINE NEGATIVE (NEGATIVE); PROTEIN,URINE 1+ (NEGATIVE); UROBILINOGEN,URINE NORMAL (NORMAL)
--- NOTE | 2024-03-02 08:23 | RAD ---
EXAMINATION:KNEE COMPLETE, RIGHTHISTORY:fall; .COMPARISON STUDY:NoneTECHNIQUE:3 views of the right knee were obtained.FINDINGS:There is normal osteopenia. There is no fracture, dislocation, or radiopaque foreign body. Soft tissues are unremarkable. No joint effusion is noted. No osteolytic or osteoblastic lesions are present. Mild osteoarthritic changes in the medial and patellofemoral compartments. Vascular calcification.IMPRESSION:No Acute Bony Process .THIS IS AN ELECTRONICALLY VERIFIED FINAL REPORT03/02/2024 8:20 AM - Electronically signed by Vance Cali MD
[2024-03-02 08:24] LABS: APPEARANCE,URINE CLEAR (CLEAR); COLOR,URINE STRAW (YELLOW)
--- NOTE | 2024-03-02 08:24 | RAD ---
EXAMINATION: KNEE COMPLETE, LEFT HISTORY: fall; . COMPARISON STUDY: None. TECHNIQUE: 3 views of the left knee were obtained. FINDINGS: Osteopenia and mild osteoarthritic changes. There is no fracture, dislocation, or radiopaque foreign body. Soft tissues are unremarkable. No joint effusion is noted. No osteolytic or osteoblastic le sions are present. Vascular calcification is present. Radiopaque density along the proximal tibia m edially may represent a surgical clip. Correlate clinically. IMPRESSION: NO ACUTE BONY PROCESS. THIS IS AN ELECTRONICALLY VERIFIED FINAL REPORT 03/02/2024 8:21 AM - Electronically signed by Vance Cali MD
[2024-03-02 08:30] LABS: BACTERIA,URINE NEGATIVE /HPF (NEGATIVE); RBC,URINE 0-2 /HPF (0-3); SQUAMOUS EPITHELIAL CELL,UR RARE /HPF (NEGATIVE)
[2024-03-02] MEDS ORDERED: TOPROL XL PO ONE (08:41)
[2024-03-02] MEDS ORDERED: GLUCOPHAGE ONE ×2 (08:41→19:56)
[2024-03-02] MEDS: NS 1,000 ML IV 1,000 ML IV SCH (10:30)
--- NOTE | 2024-03-02 11:22 | DR.H&P ---
H&P - History & Physical for Day of: H&P Date: 02/29/24 - Chief Complaint Chief Complaint: WEAKNESS, SEVERE LOW BACK PAIN, LEFT HIP PAIN, AND BILATERAL KNEE PAIN - History of Present Illness History of Present Illness: IS A 78 YEAR OLD PATIENT OF OURS. SHE PRESENTED TO THE ER WITH COMPLAINTS OF WEAKNESS, SEVERE LOW BACK PAIN, LEFT HIP PAIN, AND BILATERAL KNEE PAIN. SHE ALSO COMPLAINED OF NAUSEA AND DECREASED APPETITE. SHE WAS SEEN IN THE OFFICE ON SATURDAY OF THIS PAST WEEK AND WAS TREATED FOR A UTI. SHE WAS PRESCRIBED MACROBID 1 CAPSULE BID. HER PMH INCLUDES: ARTHRITIS, DYSLIPIDEMIA, GERD, HTN, KIDNEY STONES, CAD, TIA. SURGICAL HX INCLUDES: CABG, HYSTERECTOMY, AND APPENDECTOMY. ON ARRIVAL TO THE ER, HER VITALS WERE: 97.9-87-18-96%-186/84. LABS WERE OBTAINED. WBC 11.4, RBC 4.57, HGB 13.6, HCT 38.8, SODIUM 118, POTASSIUM 4.1, CHLORIDE 79, C02 26.5, BUN 15, CREATININE 0.96, GLUCOSE 167, CALCIUM 9.1, TOTAL BILI 0.50, AST 25, ALT 17, ALK PHOS 57, TOTAL PROTEIN 8.1, ALBUMIN 4.1, MAGNESIUM 1.0. EKG WAS OBTAINED AND REVEALED NORMAL SINUS RHYTHM WITH HR 82 BPM. SHE HAD A PELVIS CT ON 02/24/24 WHICH REVEALED: THERE IS NO ACUTE FRACTURE SEEN. NO FOCAL BONY EROSION OR SCLEROSIS IS SEEN. NO JOINT SUBLUXATION OR DISLOCATION IS SEEN. THERE IS NO EVIDENCE FOR AVASCULAR NECROSIS OF THE HIPS. THERE IS MILD OSTEOARTHRITIS OF BOTH HIPS MARKED BY JOINT SPACE NARROWINGS AND MINIMAL MARGINAL OSTEOPHYTOSIS. NO RADIODENSE SOFT TISSUE ABNORMALITY OR FOREIGN BODY IS NOTED. SEVERE AORTOILIAC AND FEMORAL ATHEROSCLEROSIS SEEN. STATUS POST HYSTERECTOMY. THERE IS SEVERE DESCENDING COLON AND SIGMOID DIVERTICULOSIS, WITHOUT EVIDENCE FOR DIVERTICULITIS. NO EVIDENCE FOR BOWEL HERNIATION, BOWEL OBSTRUCTION, OR COLITIS. THERE ARE MULTIPLE BILATERAL CALCIFIED BUTTOCK INJECTION GRANULOMAS.IN THE ER, SHE WAS GIVEN A NORMAL SALINE BOLUS AND MAGNESIUM 1G IV X 1 DOSE. SHE WAS ADMITTED TO THE HOSPITAL FOR FURTHER EVALUATION AND TREATMENT OF HYPOKALEMIA, HYPOMAGNESEMIA, AND GENERALIZED WEAKNESS. ON ADMISSION, SHE WAS STARTED ON NORMAL SALINE AT 200 ML/HR, OTBS ACHS, ZOFRAN 4MG IV Q8H PRN, RESTORIL 15MG PO HS PRN, CLONIDINE 0.1MG/HR TD PATCH, AND LABETALOL 10MG IV Q15MG PRN. HER HOME MEDICATIONS OF TRAZODONE 100MG HS, ROSUVASTATIN 20MG HS, SINGULAIR 10MG HS, METFORMIN 1000MG BID, NORCO 10/325MG QID PRN, TOPROL XL 100MG DAILY, COZAAR 100MG DAILY, CYMBALTA 60MG DAILY, PLAVIX 75MG DAILY, ECOTRIN 81MG DAILY, AND NORVASC 5MG BID WERE RESU MED. WE WILL OBTAIN BILATERAL KNEE XRAYS DUE TO KNEE PAIN. OTHERWISE, WE WILL FOLLOW-UP WITH AM LABS AND CONTINUE TO MONITOR. TIME SPENT ON CLINICAL ASSESSMENT, REVIEWING LABS AND IMAGING, DECISION MAKING, AND DOCUMENTATION GREATER THAN 75 MINUTES. - Past Medical History Past Medical History: Hypertension, Dyslipidemia, GERD, Arthritis, Kidney Stones - Past Surgical History Surgical History: Appendectomy, CABG/Valve Surgery, Hysterectomy, Ortho Surgery - Family History Family Medical History: Diabetes Mellitus, Cancer, MD, Hypertension - Social History Does patient currently use any type of tobacco product: No Have you used tobacco products in the last 12 months: No Type of Tobacco Use: None Does any household member use tobacco: No Alcohol Use: None Drug Use: None - Review of Systems Constitutional: Weakness Eyes: No Symptoms Reported ENT: No Symptoms Reported Respiratory: No Symptoms Reported Cardiovascular: No Symptoms Reported Gastrointestinal: Nausea Genitourinary: No Symptoms Reported Musculoskeletal: Back Pain, Other (LEFT HIP PAIN, BILATERAL KNEE PAIN) Skin: No Symptoms Reported Neurological: Weakness - Physical Exam Vital Signs: Vital Signs Temperature 98.6 F Temperature 97.8 F Pulse Rate 97 Pulse Rate 104 Pulse Rate 96 Pulse Rate 92 Pulse Rate 90 Pulse Rate 86 Pulse Rate 87 Pulse Rate 84 Pulse Rate 89 Respiratory Rate 21 Respiratory Rate 16 Respiratory Rate 26 Respiratory Rate 26 Respiratory Rate 20 Respiratory Rate 35 Respiratory Rate 13 Respiratory Rate 19 Respiratory Rate 13 Respiratory Rate 13 Respiratory Rate 15 Blood Pressure 179/73 Blood Pressure 167/70 Blood Pressure 192/82 Blood Pressure 163/71 Blood Pressure 161/70 O2 Sat by Pulse Oximetry 100 O2 Sat by Pulse Oximetry 95 O2 Sat by Pulse Oximetry 100 O2 Sat by Pulse Oximetry 100 O2 Sat by Pulse Oximetry 100 O2 Sat by Pulse Oximetry 100 O2 Sat by Pulse Oximetry 100 O2 Sat by Pulse Oximetry 100 O2 Sat by Pulse Oximetry 98 Oriented: Not Oriented Eyes: Normal Ear: Normal Nose: Normal Throat: Normal Respiratory: Clear Throughout Cardiovascular: Normal : Normal Auscultation: Bowel Sounds: Normal Palpation: Normal Tenderness: Normal Skin: Decreased Turgur Musculoskeletal: Left, Hip, Back:Lumbar, Tender Psychiatric: Normal Mood Description: Calm Affect: Normal Speech Pattern: Clear - Assessment/Plan (1) Acute hyponatremia Status: Acute Plan: ADMIT, NORMAL SALINE AT 200 ML/HR, OTBS ACHS, ZOFRAN 4MG IV Q8H PRN, RESTORIL 15MG PO HS PRN, CLONIDINE 0.1MG/HR TD PATCH, AND LABETALOL 10MG IV Q15MG PRN, RESUME HOME MEDS, FOLLOW-UP WITH AM LABS (2) Hypomagnesemia Status: Acute (3) Generalized weakness Status: Acute (4) Decrease in appetite Status: Acute (5) Knee pain Qualifiers: Laterality: bilateral Status: Acute Plan: OBTAIN BILATERAL KNEE XRAYS (6) Dyslipidemia Status: Chronic (7) GERD (gastroesophageal reflux disease) Qualifiers: Esophagitis presence: esophagitis presence not specified Qualified Code(s): K21.9 - Gastro-esophageal reflux disease without esophagitis Status: Chronic (8) CAD (coronary artery disease) Qualifiers: Coronary Disease-Associated Artery/Lesion type: bypass graft [place] vs. transplanted heart: [place] heart Associated angina: without angina Qualified Code(s): I25.810 - Atherosclerosis of coronary artery bypass graft(s) without angina pectoris Status: Chronic (9) CVD (cerebrovascular disease) Status: Chronic (10) HTN (hypertension) Qualifiers: Hypertension type: primary hypertension Qualified Code(s): I10 - Essential (primary) hypertension Status: Chronic - Allergies Allergies/Adverse Reactions: Allergies Allergy/AdvReac Type Severity Reaction Status Date / Time Sulfa (Sulfonamide Allergy Verified 02/24/24 19:43 Antibiotics) [SULFA] - Medications Home Medications: Home Medications Medication Instructions Recorded Confirmed Amlodipine Besylate 5 mg PO BID 01/14/17 02/29/24 Aspirin 81 mg PO DAILY 01/14/17 02/29/24 duloxetine 60 mg capsule,delayed 60 mg PO DAILY 01/14/17 02/29/24 release (Cymbalta) clopidogrel 75 mg tablet 75 mg PO QDAY 02/24/24 02/29/24 hydrocodone 10 mg-acetaminophen 1 tab PO QID PRN 02/24/24 02/29/24 325 mg tablet losartan 100 mg tablet 100 mg PO QDAY 02/24/24 02/29/24 metformin 1,000 mg tablet 1,000 mg PO BID 02/24/24 02/29/24 metoprolol succinate 100 mg 100 mg PO QDAY 02/24/24 02/29/24 tablet,extended release 24 hr montelukast 10 mg tablet 10 mg PO QDAY 02/24/24 02/29/24 rosuvastatin 20 mg tablet 20 mg PO QPM 02/24/24 02/29/24 coenzyme Q10 100 mg capsule (Co 100 mg PO QDAY 02/29/24 02/29/24 Q-10) fluconazole 150 mg tablet 150 mg PO Q3D 02/29/24 02/29/24 ibuprofen 800 mg tablet 800 mg PO TID 02/29/24 02/29/24 nitrofurantoin 1 cap PO BID 02/29/24 02/29/24 monohydrate/macrocrystals 100 mg capsule ondansetron 4 mg disintegrating 4 mg PO QID PRN Nausea And Vomiting 02/29/24 02/29/24 tablet trazodone 100 mg tablet 100 mg PO QPM 02/29/24 02/29/24
[2024-03-02] MEDS: CATAPRES-TTS-3 TD SCH (12:50)
[2024-03-02] MEDS: NS 1,000 ML IV 1,000 ML with MAGNESIUM SULFATE 50% INJ VIAL 1 G IV SCH (16:30)
[2024-03-02] MEDS ORDERED: VISTARIL PO ONE (23:14)
[2024-03-02] MEDS: VISTARIL PO PRN (23:18)
[2024-03-03] MEDS ORDERED: VALIUM ONE (03:02)
[2024-03-03] MEDS: VALIUM PO PRN (03:05)
[2024-03-03 05:06] LABS: BASOPHILS # (AUTO) 0.1 X10^3/uL (0.0-0.1); BASOPHILS % (AUTO) 0.7 % (0.2-1.0); EOSINOPHILS # (AUTO) 0.1 x10^3/uL (0.0-0.2); EOSINOPHILS % (AUTO) 1.6 % (0.9-2.9); HEMOGLOBIN 10.5 g/dL (12.0-16.0); LYMPHOCYTES # (AUTO) 1.3 X10^3/uL (1.3-2.9); LYMPHOCYTES % (AUTO) 16.5 % (21.0-51.0); MEAN CORPUSCULAR HEMOGLOBIN 30.2 pg (27.0-34.0); MEAN CORPUSCULAR HGB CONC 35.1 g/dL (33.0-35.0); MEAN CORPUSCULAR VOLUME 86.3 fL (80.0-100.0); MEAN PLATELET VOLUME 6.7 fL (7.4-11.0); MONOCYTES # (AUTO) 0.6 x10^3/uL (0.3-0.8); MONOCYTES % (AUTO) 7.6 % (0.0-13.0); NEUTROPHILS % (AUTO) 73.6 % (42.0-75.0); PLATELET COUNT 250 X10^3/uL (150.0-450.0); RED BLOOD COUNT 3.48 X10^6/uL (3.5-5.4); RED CELL DISTRIBUTION WIDTH 13.9 % (11.6-16.5); WHITE BLOOD COUNT 8.2 X10^3/uL (3.6-10.0)
[2024-03-03 05:15] LABS: ALANINE AMINOTRANSFERASE 19 Units/L (12-78); ALBUMIN 3.4 g/dL (3.4-5.0); ALKALINE PHOSPHATASE 47 Units/L (46-116); ASPARTATE AMINO TRANSFERASE 12 Units/L (15-37); BLOOD UREA NITROGEN 7 mg/dL (7-18); CALCIUM 8.8 mg/dL (8.5-10.1); CARBON DIOXIDE 29.1 mmol/L (21-32); CHLORIDE 98 mmol/L (98-107); COR NA(FOR HYPERGLY) 137 mmol/L (136-145); CREATININE 0.62 mg/dL (0.55-1.02); GLUCOSE 149 mg/dL (65-99); MAGNESIUM 1.3 mg/dL (2.0-2.9); SODIUM 136 mmol/L (136-145); TOTAL PROTEIN 6.7 g/dL (6.4-8.2); eGFR NON BLACK RACES > 60 (>60)
[2024-03-03] MEDS ORDERED: CONSULT PHARMACY - POTASSIUM & MAGNESIUM XX SCH ×2 (07:00→09:00)
[2024-03-03] MEDS ORDERED: MAG-OX TAB PO SCH (09:00)
[2024-03-03] MEDS ORDERED: K-DUR TAB 20 MEQ PO SCH (09:00)
--- NOTE | 2024-03-03 09:33 | PCM.PROG ---
Progress Note Progress Note for Day of Date of Exam: 03/03/24 Subjective Subjective: Patient seen at bedside, overnight patient was very agitated and confused. She was given several medications including Vistaril, trazodone and Zyprexa. Family states it seemed like the medications was making her worse. She did get Valium early this morning which seemed to have helped calm her down and put her to sleep. Patient is drowsy during rounds. She did work with PT yesterday and was eating better. Dr Silvestre had mentioned yesterday that if patient continues to have confusion or agitation then will order CT-brain to r/o any other cause. Labs/imaging reviewed: -Hgb 10.5 K:3.0 Ma.3 Plan: Will order CT-brain to assess further. Will DC Vistaril, Zyprexa and trazodone. Add seroquel qHS. Continue Valium prn. Replace electrolytes as per protocol. Continue fluids. PT as tolerated. Continue home medications. Fall precautions. Monitor for agitation. Monitor AM labs/imaging. Past Medical Family Social History Allergies: Allergies Sulfa (Sulfonamide Antibiotics) [SULFA] Allergy (Verified 02/24/24 19:43) Vital Signs and I&O's Vital Signs: Vital Signs Temperature 98.3 F Pulse Rate 73 Respiratory Rate 15 Blood Pressure 143/67 O2 Sat by Pulse Oximetry 96 Intake and Output: Intake & Output 02/29/24 03/01/24 03/02/24 03/03/24 23:59 23:59 23:59 23:59 Intake Total 1413 / 1413 4781 / 4781 3850 / 3850 100 / 100 Output Total 900 / 900 2350 / 2350 3075 / 3075 Balance 513 / 513 2431 / 2431 775 / 775 100 / 100 Physical Exam Oriented: Not Oriented Eyes: Normal Ear: Normal Nose: Normal Throat: Normal Respiratory: Normal Cardiovascular: Normal Auscultation: Bowel Sounds: Normal Palpation: Normal Tenderness: Normal Skin: Decreased Turgur Musculoskeletal: Left, Hip, Back:Lumbar and Tender Psychiatric: Normal Mood Description: Calm Affect: Normal Laboratory and Diagnostics 03/03/24 04:30 03/03/24 04:30 Labs: Laboratory WBC 8.2 X10^3/uL (3.6-10.0) 03/03/24 04:30 RBC 3.48 X10^6/uL (3.5-5.4) L 03/03/24 04:30 Hgb 10.5 g/dL (12.0-16.0) L 03/03/24 04:30 Hct 30.0 % (36.0-47.0) L 03/03/24 04:30 MCV 86.3 fL (80.0-100.0) 03/03/24 04:30 MCH 30.2 pg (27.0-34.0) 03/03/24 04:30 MCHC 35.1 g/dL (33.0-35.0) H 03/03/24 04:30 RDW 13.9 % (11.6-16.5) 03/03/24 04:30 Plt Count 250 X10^3/uL (150.0-450.0) 03/03/24 04:30 MPV 6.7 fL (7.4-11.0) L 03/03/24 04:30 Neut % (Auto) 73.6 % (42.0-75.0) 03/03/24 04:30 Lymph % (Auto) 16.5 % (21.0-51.0) L 03/03/24 04:30 [place] % (Auto) 7.6 % (0.0-13.0) 03/03/24 04:30 Eos % (Auto) 1.6 % (0.9-2.9) 03/03/24 04:30 Baso % (Auto) 0.7 % (0.2-1.0) 03/03/24 04:30 Neut # (Auto) 6.0 x10^3/uL (2.2-4.8) H 03/03/24 04:30 Lymph # (Auto) 1.3 X10^3/uL (1.3-2.9) 03/03/24 04:30 [place] # (Auto) 0.6 x10^3/uL (0.3-0.8) 03/03/24 04:30 Eos # (Auto) 0.1 x10^3/uL (0.0-0.2) 03/03/24 04:30 Baso # (Auto) 0.1 X10^3/uL (0.0-0.1) 03/03/24 04:30 Absolute Nucleated RBC 0.1 /100WBC 03/03/24 04:30 Sodium 136 mmol/L (136-145) 03/03/24 04:30 Corrected Sodium 137 mmol/L (136-145) 03/03/24 04:30 Potassium 3.0 mmol/L (3.5-5.1) L 03/03/24 04:30 Chloride 98 mmol/L (98-107) 03/03/24 04:30 Carbon Dioxide 29.1 mmol/L (21-32) 03/03/24 04:30 BUN 7 mg/dL (7-18) 03/03/24 04:30 Creatinine 0.62 mg/dL (0.55-1.02) 03/03/24 04:30 Est GFR (MDRD) Af Amer > 60 (>60) 03/03/24 04:30 Est GFR (MDRD) Non-Af > 60 (>60) 03/03/24 04:30 Glucose 149 mg/dL (65-99) H 03/03/24 04:30 POC Glucose (mg/dL) 142 mg/dL (65-99) H 03/03/24 05:58 Calcium 8.8 mg/dL (8.5-10.1) 03/03/24 04:30 Corrected Calcium TNP 03/03/24 04:30 Magnesium 1.3 mg/dL (2.0-2.9) L 03/03/24 04:30 Total Bilirubin 0.30 mg/dL (0.2-1.0) 03/03/24 04:30 AST 12 Units/L (15-37) L 03/03/24 04:30 ALT 19 Units/L (12-78) 03/03/24 04:30 Alkaline Phosphatase 47 Units/L (46-116) 03/03/24 04:30 Total Protein 6.7 g/dL (6.4-8.2) 03/03/24 04:30 Albumin 3.4 g/dL (3.4-5.0) 03/03/24 04:30 Globulin 3.3 g/dL (2.5-4.5) 03/03/24 04:30 Albumin/Globulin Ratio 1.0 Ratio (1.1-2.1) L 03/03/24 04:30 Specimen Type Clean catch urine 03/02/24 08:10 Urine Color Straw (YELLOW) 03/02/24 08:10 Urine Appearance Clear (CLEAR) 03/02/24 08:10 Urine pH 7.0 (5.0 - 8.0) 03/02/24 08:10 Ur Specific [place] 1.010 (1.000-1.030) 03/02/24 08:10 Urine Protein 1+ (NEGATIVE) 03/02/24 08:10 Urine Glucose (UA) Negative (NEGATIVE) 03/02/24 08:10 Urine Ketones Negative (NEGATIVE) 03/02/24 08:10 Urine Blood Negative (NEGATIVE) 03/02/24 08:10 Urine Nitrite Negative (NEGATIVE) 03/02/24 08:10 Urine Bilirubin Negative (NEGATIVE) 03/02/24 08:10 Urine Urobilinogen Normal (NORMAL) 03/02/24 08:10 Ur Leukocyte Esterase Negative (NEGATIVE) 03/02/24 08:10 Urine RBC 0-2 /HPF (0-3) 03/02/24 08:10 Urine WBC 0-2 /HPF (0-5) 03/02/24 08:10 Ur Squamous Epith Cells Rare /HPF (NEGATIVE) 03/02/24 08:10 Urine Bacteria Negative /HPF (NEGATIVE) 03/02/24 08:10 Ur Culture Indicated? No/not indicated 03/02/24 08:10 Plan (1) AMS (altered mental status): Status: Acute Qualifiers: Altered mental status type: unspecified Qualified Code(s): R41.82 - Altered mental status, unspecified (2) Acute hyponatremia: Status: Acute (3) Hypokalemia: Status: Acute (4) Hypomagnesemia: Status: Acute (5) Generalized weakness: Status: Acute (6) Decrease in appetite: Status: Acute (7) Dyslipidemia: Status: Chronic (8) GERD (gastroesophageal reflux disease): Status: Chronic Qualifiers: Esophagitis presence: esophagitis presence not specified Qualified Code(s): K21.9 - Gastro-esophageal reflux disease without esophagitis (9) CAD (coronary artery disease): Status: Chronic Qualifiers: Associated angina: without angina Coronary Disease-Associated Artery/Lesion type: bypass graft [place] vs. transplanted heart: [place] heart Qualified Code(s): I25.810 - Atherosclerosis of coronary artery bypass graft(s) without angina pectoris (10) CVD (cerebrovascular disease): Status: Chronic (11) HTN (hypertension): Status: Chronic Qualifiers: Hypertension type: primary hypertension Qualified Code(s): I10 - Essential (primary) hypertension
[2024-03-03] MEDS: NS + KCL 40 MEQ/L 1,000 ML with MAGNESIUM SULFATE 50% INJ VIAL 2 G IV SCH (10:21)
[2024-03-03] MEDS: GLUCOPHAGE ONE (10:41)
[2024-03-03] MEDS: TOPROL XL PO ONE (10:42)
--- NOTE | 2024-03-03 11:10 | CT ---
EXAM: BRAIN W/O CON HISTORY: CONFUSION, AGITATION ; HX- HTN, KIDNEY STONES SX- APPENDECTOMY, VALVE, HYST, ORTHO COMPARISON: No relevant prior studies were available for comparison at the time of interpretation.. TECHNIQUE: CT images were obtained. Multiplanar reconstructions were created on a separate workstation and used during interpretation. All CT scans at this facility is dose modulation, iterative reconstruction, an d/or weight-based dosing as appropriate to reduce radiation to levels as low as reasonably achievable (ALARA). Postprocessing details, radiation dose, and contrast dose (if applicable) are recorded in t he patient's medical record. FINDINGS: Head: Acute findings: There is no intracranial hemorrhage. No mass effect. No intra-axial or extra-axial fl uid collection. There is no mass. No tentorial, uncal, or tonsillar herniation. Brain volume and white matter: There is diffuse cortical atrophy. There is hypoattenuation in the sup ratentorial white matter consistent with chronic microvascular ischemic disease. Ventricles: No hydrocephalus Midline structures: Pituitary gland and corpus callosum are normal. Posterior fossa and skull base: Cerebellum and posterior fossa are within normal limits. Basal cister ns are not effaced. Sinuses and mastoids: Paranasal sinuses and mastoid air cells are predominantly clear. Globes and Orbits: Bilateral lens implants. Globes are intact. Bony orbits are intact. Extraocular mu scles and retrobulbar fat appear normal. Skull and soft tissues: No depressed skull fracture. Calvarium appears intact. No scalp injury is markel ntified. IMPRESSION: 1. No acute intracranial abnormality THIS IS AN ELECTRONICALLY VERIFIED FINAL REPORT 03/03/2024 11:07 AM - Electronically signed by Manpreet Lowry MD
[2024-03-03] MEDS ORDERED: GLUCOPHAGE ONE (19:53)
[2024-03-03] MEDS: SEROquel TAB 25 mg PO SCH (20:32)
[2024-03-04 05:41] LABS: BASOPHILS % (AUTO) 0.5 % (0.2-1.0); EOSINOPHILS # (AUTO) 0.2 x10^3/uL (0.0-0.2); EOSINOPHILS % (AUTO) 2.9 % (0.9-2.9); HEMATOCRIT 28.1 % (36.0-47.0); HEMOGLOBIN 9.6 g/dL (12.0-16.0); LYMPHOCYTES # (AUTO) 2.2 X10^3/uL (1.3-2.9); LYMPHOCYTES % (AUTO) 29.2 % (21.0-51.0); MEAN CORPUSCULAR HEMOGLOBIN 30.2 pg (27.0-34.0); MEAN CORPUSCULAR HGB CONC 34.4 g/dL (33.0-35.0); MEAN CORPUSCULAR VOLUME 87.9 fL (80.0-100.0); MEAN PLATELET VOLUME 6.7 fL (7.4-11.0); MONOCYTES # (AUTO) 0.5 x10^3/uL (0.3-0.8); MONOCYTES % (AUTO) 7.1 % (0.0-13.0); NEUTROPHILS # (AUTO) 4.5 x10^3/uL (2.2-4.8); NEUTROPHILS % (AUTO) 60.3 % (42.0-75.0); PLATELET COUNT 244 X10^3/uL (150.0-450.0); RED BLOOD COUNT 3.19 X10^6/uL (3.5-5.4); RED CELL DISTRIBUTION WIDTH 13.9 % (11.6-16.5); WHITE BLOOD COUNT 7.5 X10^3/uL (3.6-10.0)
[2024-03-04 05:54] LABS: ALANINE AMINOTRANSFERASE 29 Units/L (12-78); ALKALINE PHOSPHATASE 42 Units/L (46-116); ASPARTATE AMINO TRANSFERASE 19 Units/L (15-37); BLOOD UREA NITROGEN 14 mg/dL (7-18); CALCIUM 8.6 mg/dL (8.5-10.1); CARBON DIOXIDE 26.9 mmol/L (21-32); CHLORIDE 103 mmol/L (98-107); COR CA(FOR HYPOALB) 9.4 mg/dL (8.5-10.1); COR NA(FOR HYPERGLY) 138 mmol/L (136-145); CREATININE 0.79 mg/dL (0.55-1.02); GLUCOSE 142 mg/dL (65-99); POTASSIUM 3.9 mmol/L (3.5-5.1); SODIUM 137 mmol/L (136-145); eGFR NON BLACK RACES > 60 (>60)
[2024-03-04] MEDS ORDERED: TOPROL XL PO ONE (08:12)
[2024-03-04] MEDS: GLUCOPHAGE ONE (09:15)
--- NOTE | 2024-03-04 10:26 | PCM.PROG ---
Progress Note Progress Note for Day of Date of Exam: 03/04/24 Subjective Subjective: Patient seen at bedside, no acute events overnight. She is doing much better today. She is sitting up in the chair. She slept better and had no confusion or agitation. She is eating better. She did work some with PT yesterday. She still has some weakness and unsteady when ambulating. Her jeremias ctrolytes have improved. Labs/imaging reviewed: -Hgb 9.6 K:3.9 Ma.0 -CT-brain: no acute changes Plan: Will change fluids to NS, replace electrolytes as needed. PT/OT as tolerated. Continue seroquel qhS, valium prn.Continue home medications. Fall precautions. Monitor for agitation. Monitor AM labs/imaging. Past Medical Family Social History Allergies: Allergies Sulfa (Sulfonamide Antibiotics) [SULFA] Allergy (Verified 02/24/24 19:43) Vital Signs and I&O's Vital Signs: Vital Signs Pulse Rate 84 Respiratory Rate 21 Blood Pressure 104/54 O2 Sat by Pulse Oximetry 94 Intake and Output: Intake & Output 03/01/24 03/02/24 03/03/24 03/04/24 23:59 23:59 23:59 23:59 Intake Total 4781 / 4781 3850 / 3850 1834 / 1834 714 / 714 Output Total 2350 / 2350 3075 / 3075 Balance 2431 / 2431 775 / 775 1834 / 1834 714 / 714 Physical Exam Oriented: Person and Place Eyes: Normal Ear: Normal Nose: Normal Throat: Normal Respiratory: Normal Cardiovascular: Normal Auscultation: Bowel Sounds: Normal Palpation: Normal Tenderness: Normal Skin: Decreased Turgur Musculoskeletal: Left, Hip, Back:Lumbar and Tender Psychiatric: Normal Mood Description: Calm Affect: Normal Speech Pattern: Clear and Appropriate Laboratory and Diagnostics 03/04/24 04:55 03/04/24 04:55 Labs: Laboratory WBC 7.5 X10^3/uL (3.6-10.0) 03/04/24 04:55 RBC 3.19 X10^6/uL (3.5-5.4) L 03/04/24 04:55 Hgb 9.6 g/dL (12.0-16.0) L 03/04/24 04:55 Hct 28.1 % (36.0-47.0) L 03/04/24 04:55 MCV 87.9 fL (80.0-100.0) 03/04/24 04:55 MCH 30.2 pg (27.0-34.0) 03/04/24 04:55 MCHC 34.4 g/dL (33.0-35.0) 03/04/24 04:55 RDW 13.9 % (11.6-16.5) 03/04/24 04:55 Plt Count 244 X10^3/uL (150.0-450.0) 03/04/24 04:55 MPV 6.7 fL (7.4-11.0) L 03/04/24 04:55 Neut % (Auto) 60.3 % (42.0-75.0) 03/04/24 04:55 Lymph % (Auto) 29.2 % (21.0-51.0) 03/04/24 04:55 [place] % (Auto) 7.1 % (0.0-13.0) 03/04/24 04:55 Eos % (Auto) 2.9 % (0.9-2.9) 03/04/24 04:55 Baso % (Auto) 0.5 % (0.2-1.0) 03/04/24 04:55 Neut # (Auto) 4.5 x10^3/uL (2.2-4.8) 03/04/24 04:55 Lymph # (Auto) 2.2 X10^3/uL (1.3-2.9) 03/04/24 04:55 [place] # (Auto) 0.5 x10^3/uL (0.3-0.8) 03/04/24 04:55 Eos # (Auto) 0.2 x10^3/uL (0.0-0.2) 03/04/24 04:55 Baso # (Auto) 0.0 X10^3/uL (0.0-0.1) 03/04/24 04:55 Absolute Nucleated RBC 0.0 /100WBC 03/04/24 04:55 Sodium 137 mmol/L (136-145) 03/04/24 04:55 Corrected Sodium 138 mmol/L (136-145) 03/04/24 04:55 Potassium 3.9 mmol/L (3.5-5.1) 03/04/24 04:55 Chloride 103 mmol/L (98-107) 03/04/24 04:55 Carbon Dioxide 26.9 mmol/L (21-32) 03/04/24 04:55 BUN 14 mg/dL (7-18) 03/04/24 04:55 Creatinine 0.79 mg/dL (0.55-1.02) 03/04/24 04:55 Est GFR (MDRD) Af Amer > 60 (>60) 03/04/24 04:55 Est GFR (MDRD) Non-Af > 60 (>60) 03/04/24 04:55 Glucose 142 mg/dL (65-99) H 03/04/24 04:55 POC Glucose (mg/dL) 143 mg/dL (65-99) H 03/04/24 05:26 Calcium 8.6 mg/dL (8.5-10.1) 03/04/24 04:55 Corrected Calcium 9.4 mg/dL (8.5-10.1) 03/04/24 04:55 Magnesium 2.0 mg/dL (2.0-2.9) 03/04/24 04:55 Total Bilirubin 0.20 mg/dL (0.2-1.0) 03/04/24 04:55 AST 19 Units/L (15-37) 03/04/24 04:55 ALT 29 Units/L (12-78) 03/04/24 04:55 Alkaline Phosphatase 42 Units/L (46-116) L 03/04/24 04:55 Total Protein 6.0 g/dL (6.4-8.2) L 03/04/24 04:55 Albumin 3.0 g/dL (3.4-5.0) L 03/04/24 04:55 Globulin 3.0 g/dL (2.5-4.5) 03/04/24 04:55 Albumin/Globulin Ratio 1.0 Ratio (1.1-2.1) L 03/04/24 04:55 Specimen Type Clean catch urine 03/02/24 08:10 Urine Color Straw (YELLOW) 03/02/24 08:10 Urine Appearance Clear (CLEAR) 03/02/24 08:10 Urine pH 7.0 (5.0 - 8.0) 03/02/24 08:10 Ur Specific [place] 1.010 (1.000-1.030) 03/02/24 08:10 Urine Protein 1+ (NEGATIVE) 03/02/24 08:10 Urine Glucose (UA) Negative (NEGATIVE) 03/02/24 08:10 Urine Ketones Negative (NEGATIVE) 03/02/24 08:10 Urine Blood Negative (NEGATIVE) 03/02/24 08:10 Urine Nitrite Negative (NEGATIVE) 03/02/24 08:10 Urine Bilirubin Negative (NEGATIVE) 03/02/24 08:10 Urine Urobilinogen Normal (NORMAL) 03/02/24 08:10 Ur Leukocyte Esterase Negative (NEGATIVE) 03/02/24 08:10 Urine RBC 0-2 /HPF (0-3) 03/02/24 08:10 Urine WBC 0-2 /HPF (0-5) 03/02/24 08:10 Ur Squamous Epith Cells Rare /HPF (NEGATIVE) 03/02/24 08:10 Urine Bacteria Negative /HPF (NEGATIVE) 03/02/24 08:10 Ur Culture Indicated? No/not indicated 03/02/24 08:10 Plan (1) AMS (altered mental status): Status: Acute Qualifiers: Altered mental status type: unspecified Qualified Code(s): R41.82 - Altered mental status, unspecified (2) Acute hyponatremia: Status: Acute (3) Hypokalemia: Status: Acute (4) Hypomagnesemia: Status: Acute (5) Generalized weakness: Status: Acute (6) Decrease in appetite: Status: Acute (7) Dyslipidemia: Status: Chronic (8) GERD (gastroesophageal reflux disease): Status: Chronic Qualifiers: Esophagitis presence: esophagitis presence not specified Qualified Code(s): K21.9 - Gastro-esophageal reflux disease without esophagitis (9) CAD (coronary artery disease): Status: Chronic Qualifiers: Coronary Disease-Associated Artery/Lesion type: bypass graft [place] vs. transplanted heart: [place] heart Associated angina: without angina Qualified Code(s): I25.810 - Atherosclerosis of coronary artery bypass graft(s) without angina pectoris (10) CVD (cerebrovascular disease): Status: Chronic (11) HTN (hypertension): Status: Chronic Qualifiers: Hypertension type: primary hypertension Qualified Code(s): I10 - Essential (primary) hypertension
[2024-03-04] MEDS: NS 1,000 ML IV 1,000 ML IV SCH (11:54)
[2024-03-04] MEDS ORDERED: RESTORIL CAP 15 MG PO PRN (15:31)
[2024-03-04] MEDS ORDERED: GLUCOPHAGE ONE (20:19)
[2024-03-05 05:29] LABS: BASOPHILS % (AUTO) 0.6 % (0.2-1.0); EOSINOPHILS # (AUTO) 0.3 x10^3/uL (0.0-0.2); EOSINOPHILS % (AUTO) 3.7 % (0.9-2.9); HEMOGLOBIN 9.1 g/dL (12.0-16.0); LYMPHOCYTES # (AUTO) 1.8 X10^3/uL (1.3-2.9); LYMPHOCYTES % (AUTO) 25.9 % (21.0-51.0); MEAN CORPUSCULAR HGB CONC 33.6 g/dL (33.0-35.0); MEAN CORPUSCULAR VOLUME 89.3 fL (80.0-100.0); MEAN PLATELET VOLUME 6.7 fL (7.4-11.0); MONOCYTES # (AUTO) 0.4 x10^3/uL (0.3-0.8); MONOCYTES % (AUTO) 6.2 % (0.0-13.0); NEUTROPHILS # (AUTO) 4.4 x10^3/uL (2.2-4.8); NEUTROPHILS % (AUTO) 63.6 % (42.0-75.0); PLATELET COUNT 213 X10^3/uL (150.0-450.0); RED BLOOD COUNT 3.03 X10^6/uL (3.5-5.4); RED CELL DISTRIBUTION WIDTH 13.7 % (11.6-16.5); WHITE BLOOD COUNT 6.9 X10^3/uL (3.6-10.0)
[2024-03-05 05:40] LABS: ALANINE AMINOTRANSFERASE 31 Units/L (12-78); ALBUMIN 2.9 g/dL (3.4-5.0); ALKALINE PHOSPHATASE 40 Units/L (46-116); ASPARTATE AMINO TRANSFERASE 14 Units/L (15-37); BLOOD UREA NITROGEN 15 mg/dL (7-18); CALCIUM 8.5 mg/dL (8.5-10.1); CARBON DIOXIDE 28.2 mmol/L (21-32); CHLORIDE 103 mmol/L (98-107); COR CA(FOR HYPOALB) 9.4 mg/dL (8.5-10.1); COR NA(FOR HYPERGLY) 140 mmol/L (136-145); CREATININE 0.75 mg/dL (0.55-1.02); GLUCOSE 131 mg/dL (65-99); MAGNESIUM 1.4 mg/dL (2.0-2.9); POTASSIUM 4.2 mmol/L (3.5-5.1); SODIUM 139 mmol/L (136-145); TOTAL PROTEIN 5.8 g/dL (6.4-8.2); eGFR NON BLACK RACES > 60 (>60)
[2024-03-05 05:56] VITALS: TEMP 98.9
[2024-03-05] MEDS ORDERED: CONSULT PHARMACY - POTASSIUM & MAGNESIUM XX SCH (08:00)
[2024-03-05 08:04] VITALS: BP 151/67; PULSE 84; O2SAT 98
[2024-03-05] MEDS: NS 1,000 ML IV 1,000 ML with MAGNESIUM SULFATE 50% INJ VIAL 1 G IV SCH (08:48)
[2024-03-05] MEDS: GLUCOPHAGE ONE (08:57)
[2024-03-05] MEDS: TOPROL XL PO ONE (08:58)
[2024-03-05 09:07] VITALS: RESP 18
[2024-03-05] MEDS: CHLORASEPTIC SPRAY MT PRN (09:25)
--- NOTE | 2024-03-09 09:21 | W.DIS.FURT ---
Summary of Discharge Discharge Summary of Date Date of Exam: 03/05/24 Admission Date Date of Admission: 02/29/24 Admission Diagnosis Patient Problems (Updated 03/06/24 @ 12:07 by Trino Chan) CAD (coronary artery disease) (Chronic) I25.10 HTN (hypertension) (Chronic) I10 CVD (cerebrovascular disease) (Chronic) I67.9 Acute hyponatremia (Acute) E87.1 Hypomagnesemia (Acute) E83.42 Decrease in appetite (Acute) R63.0 DM2 (diabetes mellitus, type 2) (Acute) E11.9 Malaise (Acute) R53.81 Generalized weakness (Acute) R53.1 Knee pain (Acute) M25.569 Dyslipidemia (Chronic) E78.5 GERD (gastroesophageal reflux disease) (Chronic) K21.9 Hospital Course: Patient is a 78 year old female admitted for altered mental status, hyponatremia, and other multiple electrolyte abnormalities. Her hospital/ treatment course included: IVF NS, replace electrolytes as needed and per protocol. PT/OT as tolerated. Home medications were resumed. Pt responded well to treatments and symptoms significantly improved. Pt discharged in stable condition, instructed to follow up with pcp in 1 week. Vital Signs: Vital Signs (72 hours) 03/02/24 12:22 03/02/24 12:23 03/02/24 12:23 Temperature 98.1 F Pulse Rate 90 85 Respiratory Rate 25 H 19 Blood Pressure 186/79 O2 Sat by Pulse Oximetry Oxygen Delivery Method Oxygen Flow Rate FIO2% 03/02/24 12:55 03/02/24 12:55 03/02/24 13:00 Temperature Pulse Rate 94 H 90 Respiratory Rate 16 25 H Blood Pressure 175/115 O2 Sat by Pulse Oximetry Oxygen Delivery Method Oxygen Flow Rate FIO2% 03/02/24 13:00 03/02/24 13:30 03/02/24 13:30 Temperature Pulse Rate 89 Respiratory Rate 20 Blood Pressure 164/77 153/70 O2 Sat by Pulse Oximetry Oxygen Delivery Method Oxygen Flow Rate FIO2% 03/02/24 14:00 03/02/24 15:00 03/02/24 16:00 Temperature Pulse Rate 93 H 89 87 Respiratory Rate 22 15 23 Blood Pressure O2 Sat by Pulse Oximetry Oxygen Delivery Method Oxygen Flow Rate FIO2% 03/02/24 16:13 03/02/24 16:13 03/02/24 20:43 Temperature 97.9 F Pulse Rate 82 Respiratory Rate 26 H Blood Pressure 124/60 O2 Sat by Pulse Oximetry Oxygen Delivery Method Room Air Oxygen Flow Rate FIO2% 03/02/24 19:00 03/02/24 20:00 03/03/24 00:00 Temperature 99.0 F 98.4 F Pulse Rate 90 86 Respiratory Rate 14 13 Blood Pressure 152/86 153/71 O2 Sat by Pulse Oximetry 97 Oxygen Delivery Method Room Air Room Air Room Air Oxygen Flow Rate FIO2% 03/03/24 04:00 03/03/24 08:00 03/03/24 07:00 Temperature 98.3 F 97.6 F Pulse Rate 73 82 Respiratory Rate 15 20 Blood Pressure 143/67 184/91 O2 Sat by Pulse Oximetry 96 100 Oxygen Delivery Method Room Air Room Air Room Air Oxygen Flow Rate FIO2% 03/03/24 12:00 03/03/24 16:00 03/03/24 19:35 Temperature 98.7 F 98.0 F Pulse Rate 79 78 Respiratory Rate 20 16 Blood Pressure 131/60 121/59 O2 Sat by Pulse Oximetry 96 96 Oxygen Delivery Method Room Air Room Air Nasal Cannula Oxygen Flow Rate 2 FIO2% 03/03/24 23:11 03/03/24 19:00 03/03/24 20:00 Temperature 99.1 F Pulse Rate 89 Respiratory Rate 23 23 Blood Pressure 148/70 O2 Sat by Pulse Oximetry 94 L Oxygen Delivery Method Room Air Room Air Oxygen Flow Rate FIO2% 03/04/24 00:00 03/04/24 00:11 03/04/24 04:00 Temperature 98.8 F Pulse Rate 79 84 Respiratory Rate 18 14 21 Blood Pressure 143/65 104/54 O2 Sat by Pulse Oximetry 95 94 L Oxygen Delivery Method Room Air Room Air Oxygen Flow Rate FIO2% 03/04/24 08:39 03/04/24 11:53 03/04/24 07:00 Temperature Pulse Rate Respiratory Rate 21 Blood Pressure O2 Sat by Pulse Oximetry Oxygen Delivery Method Room Air Room Air Oxygen Flow Rate 2 FIO2% 28 03/04/24 08:00 03/04/24 08:00 03/04/24 12:00 Temperature 99.0 F Pulse Rate 109 H Respiratory Rate 14 Blood Pressure 173/72 160/74 O2 Sat by Pulse Oximetry 98 Oxygen Delivery Method Oxygen Flow Rate FIO2% 03/04/24 12:00 03/04/24 12:53 03/04/24 16:00 Temperature 98.9 F 98.6 F Pulse Rate 81 72 Respiratory Rate 16 19 16 Blood Pressure O2 Sat by Pulse Oximetry 99 97 Oxygen Delivery Method Oxygen Flow Rate FIO2% 03/04/24 16:00 03/04/24 20:37 03/04/24 19:00 Temperature Pulse Rate Respiratory Rate 24 Blood Pressure 122/59 O2 Sat by Pulse Oximetry Oxygen Delivery Method Room Air Oxygen Flow Rate FIO2% 03/04/24 20:00 03/04/24 21:37 03/05/24 00:00 Temperature 98.6 F 99.2 F Pulse Rate 93 H 93 H Respiratory Rate 16 24 11 L Blood Pressure 174/75 158/79 O2 Sat by Pulse Oximetry 98 99 Oxygen Delivery Method Room Air Room Air Oxygen Flow Rate FIO2% 03/05/24 04:00 03/04/24 21:30 03/05/24 07:00 Temperature 98.9 F Pulse Rate 67 69 Respiratory Rate 10 L 15 Blood Pressure 140/65 O2 Sat by Pulse Oximetry 99 98 Oxygen Delivery Method Room Air Room Air Oxygen Flow Rate 2 FIO2% 28 03/05/24 08:00 03/05/24 08:00 03/05/24 07:00 Temperature Pulse Rate 84 Respiratory Rate 15 Blood Pressure 151/67 O2 Sat by Pulse Oximetry 98 Oxygen Delivery Method Room Air Oxygen Flow Rate FIO2% 03/05/24 09:06 03/05/24 10:16 Temperature Pulse Rate Respiratory Rate 18 Blood Pressure O2 Sat by Pulse Oximetry Oxygen Delivery Method Room Air Oxygen Flow Rate 2 FIO2% 28 Labs: Laboratory Last Values WBC 6.9 X10^3/uL (3.6-10.0) 03/05/24 04:19 RBC 3.03 X10^6/uL (3.5-5.4) L 03/05/24 04:19 Hgb 9.1 g/dL (12.0-16.0) L 03/05/24 04:19 Hct 27.0 % (36.0-47.0) L 03/05/24 04:19 MCV 89.3 fL (80.0-100.0) 03/05/24 04:19 MCH 30.0 pg (27.0-34.0) 03/05/24 04:19 MCHC 33.6 g/dL (33.0-35.0) 03/05/24 04:19 RDW 13.7 % (11.6-16.5) 03/05/24 04:19 Plt Count 213 X10^3/uL (150.0-450.0) 03/05/24 04:19 MPV 6.7 fL (7.4-11.0) L 03/05/24 04:19 Neut % (Auto) 63.6 % (42.0-75.0) 03/05/24 04:19 Lymph % (Auto) 25.9 % (21.0-51.0) 03/05/24 04:19 [place] % (Auto) 6.2 % (0.0-13.0) 03/05/24 04:19 Eos % (Auto) 3.7 % (0.9-2.9) H 03/05/24 04:19 Baso % (Auto) 0.6 % (0.2-1.0) 03/05/24 04:19 Neut # (Auto) 4.4 x10^3/uL (2.2-4.8) 03/05/24 04:19 Lymph # (Auto) 1.8 X10^3/uL (1.3-2.9) 03/05/24 04:19 [place] # (Auto) 0.4 x10^3/uL (0.3-0.8) 03/05/24 04:19 Eos # (Auto) 0.3 x10^3/uL (0.0-0.2) H 03/05/24 04:19 Baso # (Auto) 0.0 X10^3/uL (0.0-0.1) 03/05/24 04:19 Absolute Nucleated RBC 0.0 /100WBC 03/05/24 04:19 Sodium 139 mmol/L (136-145) 03/05/24 04:19 Corrected Sodium 140 mmol/L (136-145) 03/05/24 04:19 Potassium 4.2 mmol/L (3.5-5.1) 03/05/24 04:19 Chloride 103 mmol/L (98-107) 03/05/24 04:19 Carbon Dioxide 28.2 mmol/L (21-32) 03/05/24 04:19 BUN 15 mg/dL (7-18) 03/05/24 04:19 Creatinine 0.75 mg/dL (0.55-1.02) 03/05/24 04:19 Est GFR (MDRD) Af Amer > 60 (>60) 03/05/24 04:19 Est GFR (MDRD) Non-Af > 60 (>60) 03/05/24 04:19 Glucose 131 mg/dL (65-99) H 03/05/24 04:19 POC Glucose (mg/dL) 131 mg/dL (65-99) H 03/05/24 06:06 Calcium 8.5 mg/dL (8.5-10.1) 03/05/24 04:19 Corrected Calcium 9.4 mg/dL (8.5-10.1) 03/05/24 04:19 Magnesium 1.4 mg/dL (2.0-2.9) L 03/05/24 04:19 Total Bilirubin 0.10 mg/dL (0.2-1.0) L 03/05/24 04:19 AST 14 Units/L (15-37) L 03/05/24 04:19 ALT 31 Units/L (12-78) 03/05/24 04:19 Alkaline Phosphatase 40 Units/L (46-116) L 03/05/24 04:19 Total Protein 5.8 g/dL (6.4-8.2) L 03/05/24 04:19 Albumin 2.9 g/dL (3.4-5.0) L 03/05/24 04:19 Globulin 2.9 g/dL (2.5-4.5) 03/05/24 04:19 Albumin/Globulin Ratio 1.0 Ratio (1.1-2.1) L 03/05/24 04:19 Specimen Type Clean catch urine 03/02/24 08:10 Urine Color Straw (YELLOW) 03/02/24 08:10 Urine Appearance Clear (CLEAR) 03/02/24 08:10 Urine pH 7.0 (5.0 - 8.0) 03/02/24 08:10 Ur Specific [place] 1.010 (1.000-1.030) 03/02/24 08:10 Urine Protein 1+ (NEGATIVE) 03/02/24 08:10 Urine Glucose (UA) Negative (NEGATIVE) 03/02/24 08:10 Urine Ketones Negative (NEGATIVE) 03/02/24 08:10 Urine Blood Negative (NEGATIVE) 03/02/24 08:10 Urine Nitrite Negative (NEGATIVE) 03/02/24 08:10 Urine Bilirubin Negative (NEGATIVE) 03/02/24 08:10 Urine Urobilinogen Normal (NORMAL) 03/02/24 08:10 Ur Leukocyte Esterase Negative (NEGATIVE) 03/02/24 08:10 Urine RBC 0-2 /HPF (0-3) 03/02/24 08:10 Urine WBC 0-2 /HPF (0-5) 03/02/24 08:10 Ur Squamous Epith Cells Rare /HPF (NEGATIVE) 03/02/24 08:10 Urine Bacteria Negative /HPF (NEGATIVE) 03/02/24 08:10 Ur Culture Indicated? No/not indicated 03/02/24 08:10 Reason For Visit: HYPONATREMIA, HYPOMAGNESIUM, WEAKNESS Discharge Date Discharge Date: 03/05/24 Discharge Diagnosis All Active Problems (Updated 03/06/24 @ 12:07 by Trino Chan) Urinary tract infection (Acute) Fever (Acute) Hypokalemia (Acute) AMS (altered mental status) (Acute) TIA (transient ischemic attack) (Acute) Acute diarrhea (Acute) Blood glucose elevated (Acute) Nausea, vomiting and diarrhea (Acute) Abdominal pain (Acute) CAD (coronary artery disease) (Chronic) HTN (hypertension) (Chronic) CVD (cerebrovascular disease) (Chronic) Lumbosacral pain (Acute) Cervical sprain (Acute) Contusion of scalp (Acute) Skin tear (Acute) Laceration (Acute) Urinary tract infection (Acute) Dehydration (Acute) Hip pain, left (Acute) Acute pelvic pain (Acute) Acute hyponatremia (Acute) Hypomagnesemia (Acute) Decrease in appetite (Acute) DM2 (diabetes mellitus, type 2) (Acute) Malaise (Acute) Generalized weakness (Acute) Knee pain (Acute) Dyslipidemia (Chronic) GERD (gastroesophageal reflux disease) (Chronic) Plan of Treatment: Continue with present treatment and follow up plan. Pt is to keep follow up appointment as instructed and take medications as ordered. Discharge Medications Discharge Medications: Sulfa (Sulfonamide Antibiotics) [SULFA] Allergy (Verified 02/24/24 19:43) CONTINUE taking the following medications coenzyme Q10 100 mg capsule (Co Q-10) 100 mg PO QDAY 02/29/24 [History] fluconazole 150 mg tablet 150 mg PO Q3D 02/29/24 [History] ibuprofen 800 mg tablet 800 mg PO TID 02/29/24 [History] nitrofurantoin monohydrate/macrocrystals 100 mg capsule 1 cap PO BID 02/29/24 [History] ondansetron 4 mg disintegrating tablet 4 mg PO QID PRN Nausea And Vomiting 02/29/24 [History] trazodone 100 mg tablet 100 mg PO QPM 02/29/24 [History] New Prescriptions fluticasone propionate 50 mcg/actuation nasal spray,suspension (Flonase Allergy Relief) 1 spray intranasal BID #1 ea 03/05/24 [Rx] Discharge Disposition Assessment: No distress noted. Discharge Plan Discharge Plan Hospital Course: Patient is a 78 year old female admitted for altered mental status, hyponatremia, and other multiple electrolyte abnormalities. Her hospital/ treatment course included: IVF NS, replace electrolytes as needed and per protocol. PT/OT as tolerated. Home medications were resumed. Pt responded well to treatments and symptoms significantly improved. Pt discharged in stable condition, instructed to follow up with pcp in 1 week. Patient Disposition: HOME HEALTH SERVICE Condition: Stable Health Concerns: Post Hospitalization: new medications and changes needed to prevent readmission or further decline. Pt educated and given instructions on all concerns. Care Plan Goals: Problem: Fluid Volume Deficit Goal: Maintain/Improved Adequate hydration. Instructions: Follow provided instructions. Follow up with primary physician as directed. Contact primary care physician or report to the closest Emergency Room if condition worsens. Plan of Treatment: Continue with present treatment and follow up plan. Pt is to keep follow up appointment as instructed and take medications as ordered. Assessment: No distress noted. Prescriptions: New fluticasone propionate [Flonase Allergy Relief] 50 mcg/actuation Veteran,Suspension 1 spray INTRANASAL BID MDD 7 Qty: 1 0RF Rx Instructions: administer into each nostril No Action Amlodipine Besylate 5 MG Tab 5 mg PO BID Aspirin 81 MG Tab 81 mg PO DAILY duloxetine [Cymbalta] 60 MG capsule,delayed release(DR/EC) 60 mg PO DAILY hydrocodone-acetaminophen 10-325 mg tablet 1 tab PO QID PRN rosuvastatin 20 mg tablet 20 mg PO QPM metoprolol succinate 100 mg tablet extended release 24 hr 100 mg PO QDAY montelukast 10 mg tablet 10 mg PO QDAY clopidogrel 75 mg tablet 75 mg PO QDAY metformin 1,000 mg tablet 1,000 mg PO BID losartan 100 mg tablet 100 mg PO QDAY fluconazole 150 mg tablet 150 mg PO Q3D ondansetron 4 mg tablet,disintegrating 4 mg PO QID PRN (Reason: Nausea And Vomiting) nitrofurantoin monohyd/m-cryst 100 mg capsule 1 cap PO BID ibuprofen 800 mg tablet 800 mg PO TID trazodone 100 mg tablet 100 mg PO QPM coenzyme Q10 [Co Q-10] 100 mg Capsule 100 mg PO QDAY nitrofurantoin monohyd/m-cryst [Macrobid] 100 mg capsule 100 mg PO BID MDD 2 Qty: 20 0RF Rx Instructions: must administer with a meal/food Follow ups/Referrals Follow ups/Referrals: [facility] [Other] (Referral sent on 03/04/24) Leon Silvestre [Primary Care Provider] - 03/10/24 11:00 am Instructions Instructions: Hyponatremia, [id number], Hypomagnesemia, Hypokalemia, Weakness, [id number], Delirium Stand Alone Forms: Post Hospital Follow Up Care
== END 2024-03-05 11:30 | disposition home health service (06) | DRG 641 ==
LOC: ER 15:44 → MED/SURG 17:02 → ICU 17:54
PROVIDERS: ADMIT Family Medicine; ATTEND Internal Medicine
DX: M25.561 Pain in right knee; I67.9 Cerebrovascular disease, unspecified; I10 Essential (primary) hypertension; R26.89 Other abnormalities of gait and mobility; R53.1 Weakness; E78.5 Hyperlipidemia, unspecified; I25.810 Atherosclerosis of coronary artery bypass graft(s) without angina pectoris; M25.552 Pain in left hip; R94.31 Abnormal electrocardiogram [ECG] [EKG]; E11.65 Type 2 diabetes mellitus with hyperglycemia; R63.0 Anorexia; K21.9 Gastro-esophageal reflux disease without esophagitis; E83.42 Hypomagnesemia; R41.82 Altered mental status, unspecified; Z87.440 Personal history of urinary (tract) infections; M54.59 Other low back pain; E87.1 Hypo-osmolality and hyponatremia; E87.6 Hypokalemia